=== PATIENT | female | born 1990 | race Caucasian/White ===

== ENCOUNTER → 2017-06-15 14:39 | Outpatient (CLI) | payer OTHER, SELFPAY ==
[2017-05-07 14:00] VITALS: BP 117/64
[2017-06-15 14:11] VITALS: BP 108/71; BMI 25.0
[2017-06-15 15:05] LABS: Absolute Lymphocyte Count 1.46 X10^3/ul (0.83-4.51); Absolute Neutrophil Count 2.8 X10^3/uL (2.0-7.7); Basophil# 0.02 X10^3/uL; Basophil% 0.4 % (0-1); Eosinophil# 0.09 X10^3/uL; Eosinophils% 1.9 % (0-5); Hematocrit 39.1 % (37-47); Hemoglobin 12.1 g/dl (12.0-15.0); Lymphocyte # 1.46 X10^3/ul (4.0); Lymphocyte % 30.4 % (19-41); Mean Corp Hgb Conc 30.9 g/gl (32-36); Mean Corpuscular Hgb 26.9 pg (27.0-32.0); Mean Corpuscular Volume 87.1 fL (81-99); Mean Platelet Vol. 10.2 fl (6.2-12.0); Monocyte# 0.44 X10^3/uL; Monocyte% 9.2 % (0-10); Neutrophil # 2.78 X10^3/uL (2.7-7.7); Neutrophil % 57.9 % (47-70); Platelet Count 285 K/mm3 (150-450); RBC Distribution Width CV 15.3 % (11.6-14.6); RBC Distribution Width SD 49.1 fl (35.1-43.9); Red Blood Count 4.49 M/mm3 (4.2-5.4); White Blood Count 4.8 K/mm3 (4.4-11.0)
[2017-06-15 15:09] LABS: POSITIVE COUNT NO; POSITIVE DIFFERENTIAL NO; POSITIVE MORPHOLOGY NO
== END ==
PROVIDERS: Family Provider Student in an Organized Health Care Education/Training Program; PCP Student in an Organized Health Care Education/Training Program; Visit Provider Obstetrics & Gynecology
DX: R42 Dizziness and giddiness (principal)
CPT/HCPCS: 36415; 85025

== ENCOUNTER → 2017-06-15 18:18 | Outpatient (CLI) | payer OTHER, SELFPAY ==
[2017-05-07 14:00] VITALS: BP 117/64
[2017-06-15 14:11] VITALS: BP 108/71; BMI 25.0
== END ==
PROVIDERS: Family Provider Student in an Organized Health Care Education/Training Program; PCP Student in an Organized Health Care Education/Training Program; Visit Provider Obstetrics & Gynecology
DX: N89.8 Other specified noninflammatory disorders of vagina (principal)
CPT/HCPCS: 87070; 87205

== ENCOUNTER → 2017-08-14 17:39 | Outpatient (CLI) | payer OTHER, SELFPAY | PROVIDERS: Visit Provider Obstetrics & Gynecology | DX: N89.8 Other specified noninflammatory disorders of vagina (principal); R20.8 Other disturbances of skin sensation | CPT/HCPCS: 87070; 87077; 87086; 87088; 87186; 87205 ==

== ENCOUNTER → 2019-06-08 | Outpatient (CLI) | payer OTHER, SELFPAY ==
[2019-06-08 10:33] VITALS: BMI 25.0
[2019-06-15 13:44] LABS: HPV Reflexed? NOT INDICATED
== END | disposition home or self-care (01) ==
PROVIDERS: PCP Student in an Organized Health Care Education/Training Program; Referring Provider Obstetrics & Gynecology; Visit Provider Obstetrics & Gynecology
DX: Z12.4 Encounter for screening for malignant neoplasm of cervix (principal)
CPT/HCPCS: 88175; G0145

== ENCOUNTER → 2019-10-19 08:52 | Outpatient (CLI) | payer OTHER, SELFPAY ==
[2019-06-08 10:33] VITALS: BMI 25.0
--- NOTE | 2019-10-19 09:01 | RAD_ITS ---
PROCEDURE: SMALL BOWEL SERIES DATE OF EXAMINATION: October 19, 2019. INDICATION: Female, 29 years old. 2 month history of abdominal pain and diarrhea. PHYSICIAN: Kam Rice M.D. FLUOROSCOPY TIME (if supplied): (0:10) minutes/seconds TECHNIQUE: Radiographic and fluoroscopic images were taken of the small intestine following the ingestion of barium. COMPARISON: None. FINDINGS: A preliminary supine KUB was obtained. There is an unremarkable bowel gas pattern. Large amount of fecal material is seen in the colon. The lung bases are unremarkable. The osseous structures are normal. The patient orally ingested approximately 12 ounces of thin barium Normal visualized fundus, body, and antrum of the stomach. Normal duodenal bulb, C-loop, and proximal jejunum. Normal visualized mucosal folds of the jejunum and ileum. There are no demonstrated dilatations, strictures, or masses of the small intestine. There is no mass displacement of the loops of small intestine. There is a normal motor pattern with barium reaching the colon within approximately 60 minutes. Spot films under fluoroscopic observation demonstrated a normal terminal ileum and ileocecal valve. RAD/Small Bowel Series Only IMPRESSION: Normal small bowel series. Electronically Signed: Kam Rice, at 11:24 EDT , Service support ,
== END ==
PROVIDERS: PCP Student in an Organized Health Care Education/Training Program; Referring Provider Internal Medicine Gastroenterology; Visit Provider Internal Medicine Gastroenterology
DX: R10.9 Unspecified abdominal pain (principal); R19.7 Diarrhea, unspecified
CPT/HCPCS: 74250

== ENCOUNTER 2020-06-01 12:36 | Outpatient (RCR) | payer OTHER, SELFPAY ==
[2019-06-08 10:33] VITALS: BMI 25.0
== END 2020-06-01 23:59 ==
LOC: IMMUN 12:36
PROVIDERS: PCP Student in an Organized Health Care Education/Training Program; Visit Provider Family Medicine
DX: Z23 Encounter for immunization (principal)
CPT/HCPCS: 0011A; 0012A; 91301

== ENCOUNTER → 2021-02-25 | Outpatient (CLI) | payer OTHER, SELFPAY ==
[2021-02-25 12:05] LABS: Amphetamine Urine VISTA NEGATIVE (<1000 ng/mL); Barbiturate Urine VISTA NEGATIVE (< 200 ng/mL); Benzodiazepine Urine VISTA NEGATIVE (< 200 ng/mL); Cocaine Urine VISTA NEGATIVE (< 300 ng/mL); Ecstacy Urine VISTA NEGATIVE (< 500 ng/mL); Methadone Urine VISTA NEGATIVE (< 300 ng/mL); PCP Urine VISTA NEGATIVE (< 25 ng/mL); THC Urine VISTA NEGATIVE (< 50 ng/mL); Vista UDS pH Range 6
[2021-02-26 21:07] LABS: Chlamydia By Nucleic Acid AMP Negative (Negative)
[2021-02-26 21:34] LABS: Gonococcus By Nucleic Acid AMP Negative (Negative)
== END | disposition home or self-care (01) ==
LOC: LABSPEC 11:41
PROVIDERS: PCP Student in an Organized Health Care Education/Training Program; Referring Provider Obstetrics & Gynecology; Visit Provider Obstetrics & Gynecology
DX: O99.340 Other mental disorders complicating pregnancy, unspecified trimester (principal); F41.9 Anxiety disorder, unspecified; F32.A Depression, unspecified; O26.899 Other specified pregnancy related conditions, unspecified trimester; K21.9 Gastro-esophageal reflux disease without esophagitis; Z3A.00 Weeks of gestation of pregnancy not specified; Z23 Encounter for immunization; Z82.79 Family history of other congenital malformations, deformations and chromosomal abnormalities
CPT/HCPCS: 80307; 87086; 87088; 87491; 87591

== ENCOUNTER 2021-03-04 10:16 | Emergency (ER) | payer OTHER, SELFPAY ==
[2021-03-04 10:17] VITALS: BP 123/98; PULSE 85; RESP 16; TEMP 35.9; O2SAT 100; BMI 20.9
--- NOTE | 2021-03-04 10:31 | EKG12_ITS ---
Test Reason : DIZZINESS/PALPS Blood Pressure : / mmHG Vent. Rate : 079 BPM Atrial Rate : 079 BPM P-R Int : 116 ms QRS Dur : 088 ms QT Int : 388 ms P-R-T Axes : 076 063 058 degrees QTc Int : 444 ms Normal sinus rhythm Normal ECG Confirmed by SHABNAM ALVARADO, DEWEY ([id number]), material expeditor BLANCA CARMONA ([id number]) on 03/06/2021 9:23:53 AM Referred By: NAVEEN Confirmed By:DEWEY HAQUE MD
--- NOTE | 2021-03-04 10:34 | EDS_ITS ---
HPI History of Present Illness Chief Complaint: Dizziness Informant: patient Onset/Context/Timing Onset: Weeks (1) Context: Gradual Onset Timing: Intermittent and Lasts (Approximately 30 minutes) Quality: Spinning Location: Head Worsened by: Certain head movements Relieved by: Remaining still Narrative Narrative: Patient presents with dizziness that has been intermittent over the last week. Patient states it is worse whenever she moves her head certain ways. Patient describes as a spinning sensation. Patient states it gets better whenever she remains still. Patient also admits to some palpitations. Patient states the palpitations are not related to the dizziness. Patient admits to some shortness of breath and chest pain with the palpitations. Patient is approximately 9 weeks . Patient denies any abdominal pain or cramping. Patient denies any vaginal bleeding or discharge. PFSH [facility] Medical History Anxiety Folliculitis GERD (gastroesophageal reflux disease) History of asthma History of PCOS IBS (irritable bowel syndrome) Irregular menses PMDD (premenstrual dysphoric disorder) Home Medications multivitamin no.47-iron fum 27 mg-folate no.1 1 mg-dha 300 mg capsule 1 cap PO DAILY 02/13/21 [History Last Taken Unknown] Allergy/AdvReac Type Severity Reaction Status Date / Time amoxicillin Allergy Mild Hives Verified 03/04/21 10:19 erythromycin Allergy Mild Hives Uncoded 03/04/21 10:19 Family History Grandmother Breast cancer melanoma Grandfather Heart disease Father Diabetes Aunt Cancer ovarian Surgical History H/O hernia repair History of breast lump/mass excision Social History household members: family housing: house number of children: 1 current occupational status: employed Smoking Status: Never smoker second hand exposure: No alcohol intake: never caffeine: Yes what type of physical activity do you participate in: walking frequency: daily seatbelt use: always do you feel safe at home: Yes additional social history: -Jones 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 ROS ED Constitutional Constitutional ED: Denies chills or fever(s) Eyes Eyes: Denies blurry vision or change in vision ENT ENT ED: Denies rhinorrhea or sore throat Cardiovascular Cardiovascular: Reports chest pain and palpitations Respiratory/Chest Respiratory/Chest: Reports dyspnea; Denies cough Gastrointestinal Gastrointestinal: Denies nausea or vomiting Genitourinary Genitourinary ED: Denies dysuria or hematuria Musculoskeletal Musculoskeletal: Reports neck pain; Denies back pain Integumentary Denies abscess or rash Neurologic Neurologic: Reports headache(s); Denies weakness Allergic/Immunologic Allergic/Immunologic ED: Denies mouth swelling or urticaria EXAM Physical Exam Const Vital Signs: 03/04/21 10:17 03/04/21 10:26 03/04/21 11:49 Temperature 96.6 F L Temperature Source Temporal Pulse Rate 85 Pulse Rate [Lying] 78 Pulse Rate [Sitting] 84 Respiratory Rate 16 Respiratory Pattern Normal Blood Pressure 123/98 H Blood Pressure [Lying] 96/57 L Blood Pressure [Sitting] 107/67 Blood Pressure [Standing] 105/69 Blood Pressure Mean 106 Blood Pressure Mean [Lying] 70 Blood Pressure Mean [Sitting] 80 Blood Pressure Mean [Standing] 81 Pulse Ox 100 Oxygen Delivery Method Room Air 03/04/21 12:16 Temperature Temperature Source Pulse Rate 75 Pulse Rate [Lying] Pulse Rate [Sitting] Respiratory Rate 16 Respiratory Pattern Blood Pressure 100/59 L Blood Pressure [Lying] Blood Pressure [Sitting] Blood Pressure [Standing] Blood Pressure Mean 72 Blood Pressure Mean [Lying] Blood Pressure Mean [Sitting] Blood Pressure Mean [Standing] Pulse Ox 100 Oxygen Delivery Method Room Air Positive well nourished and well developed General Appearance ED: well developed HEENT Reports moist mucous membranes Eyes PERRL and EOMs intact bilaterally Eyes Narrative: There is no nystagmus noted. Neck supple and no JVD Resp normal respiratory effort and clear to auscultation bilaterally Cardio regular rate, regular rhythm and no murmurs GI normal to inspection, nondistended, normoactive bowel sounds and non-tender Palpation: soft Extremity normal to inspection General Extremety ED: Negative for edema or tenderness General Extremity: Negative for edema Neuro oriented x3, CN's II-XII intact bilaterally and no sensory deficits noted Neuro Narrative: Marble-Hallpike maneuver was negative. Sensorium / Orientation: alert Motor Exam: strength 5/5 throughout Psych mental status grossly normal Skin no rashes or lesions noted MDM MDM MDM Narrative Medical decision making narrative: Patient did not have any vertigo type symptoms here in the emergency department. Patient had no further palpitations here in the emergency department. EKG was obtained. On my interpretation, shows a normal sinus rhythm with a rate of 79. There are no acute ST or T wave changes. HI interval, QRS interval, and QTc intervals were normal. [place] was normal. CBC and comprehensive metabolic profile were within normal limits. Urinalysis does not show any evidence of urinary tract infection. Orthostatic vital signs were obtained were within normal limits. Patient was advised of her findings. Patient was given a prescription for meclizine to take as needed. Patient was instructed to follow-up with her primary care physician and [employer] [facility] [employer] in 3 to 5 days. Patient understood and was agreeable with the plan. All questions were answered. Lab Data Attestation: I reviewed the patient's lab results. Labs: Laboratory Results - last 24 hr 03/04/21 03/04/21 03/04/21 10:34 10:34 11:35 WBC 5.4 RBC 4.10 L Hgb 13.0 Hct 38.2 MCV 93.2 MCH 31.7 MCHC 34.0 RDW Std Deviation 42.5 RDW Coeff of Maxx 12.3 Plt Count 251 MPV 10.4 Immature Gran % (Auto) 0.400 Neut % (Auto) 71.1 H Lymph % (Auto) 20.0 [place] % (Auto) 7.4 Eos % (Auto) 0.7 Baso % (Auto) 0.4 Absolute Neuts (auto) 3.9 Absolute Lymphs (auto) 1.08 Nucleated RBC % 0 Sodium 137 Potassium 3.5 Chloride 105 Carbon Dioxide 26.0 Anion Gap 6 BUN 12 Creatinine 0.63 Estim Creat Clear Calc 121.55 Est GFR (MDRD) Af Amer 141 Est GFR (MDRD) Non-Af 117 BUN/Creatinine Ratio 19.0 Glucose 54 L Calcium 8.6 Total Bilirubin 0.50 AST 7 L ALT 12 L Alkaline Phosphatase 34 L Total Protein 7.1 Albumin 3.7 Globulin 3.4 Albumin/Globulin Ratio 1.1 Urine Color Yellow Urine Clarity Sl. Cloudy Urine pH 6.5 Ur Specific [place] 1.020 Urine Protein 15 H Urine Glucose (UA) Normal Urine Ketones 15 H Urine Occult Blood Negative Urine Nitrite Negative Urine Bilirubin Negative Urine Urobilinogen Normal Ur Leukocyte Esterase Negative Urine RBC 0 SEEN Urine WBC 0 SEEN Ur Squamous Epith Cells 0-5 SEEN Urine Bacteria 1+ Urine Mucus 2+ EKG Initial EKG: Attestation: I personally reviewed and interpreted this EKG as follows: Interpretation: Sinus Rhythm (79) and No Acute Injury Pattern Discharge Plan Triage Chief Complaint: Dizziness ED Provider: Santo Jalloh Dx/Rx/DC Orders Clinical Impression: Vertigo, First trimester Instructions: ED Vertigo, Unspecified Prescriptions: No Action PNV-DHA 27 mg iron-1 mg -300 mg capsule 1 cap PO DAILY RF: 0 Primary Care Provider: Ad Call Referrals: Ad Call DO [Primary Care Provider] - 3-5 Days Disposition Disposition: Home, Self Care
[2021-03-04] MEDS: 0.9% Normal Saline 1,000 ML 1000 ML IV (10:37)
[2021-03-04 10:50] LABS: Absolute Lymphocyte Count 1.08 X10^3/uL (0.83-4.51); Absolute Neutrophil Count 3.9 X10^3/uL (2.0-7.7); Basophil# 0.02 X10^3/uL; Basophil% 0.4 % (0-1); Eosinophil# 0.04 X10^3/uL; Eosinophils% 0.7 % (0-5); Hematocrit 38.2 % (37-47); Lymphocyte # 1.08 X10^3/ul (0.83-4.51); Mean Corpuscular Hgb 31.7 pg (27.0-32.0); Mean Corpuscular Volume 93.2 fL (81-99); Mean Platelet Vol. 10.4 fl (6.2-12.0); Monocyte% 7.4 % (0-10); NRBC Flagged by Analyzer 0 % (0-5); Neutrophil # 3.85 X10^3/uL (2.7-7.7); Neutrophil % 71.1 % (47-70); Platelet Count 251 K/mm3 (150-450); RBC Distribution Width CV 12.3 % (11.6-14.6); RBC Distribution Width SD 42.5 fl (35.1-43.9); White Blood Count 5.4 K/mm3 (4.4-11.0)
[2021-03-04 11:07] LABS: ALB/GLOB Ratio 1.1 RATIO (0.9-2.4); AST(SGOT) 7 U/L (15-37); Alanine Aminotransfer ALT/SGPT 12 U/L (13-56); Albumin, Serum 3.7 g/dL (3.2-5.0); Alkaline Phosphatase 34 U/L (45-117); Anion Gap 6 (5-15); BUN 12 mg/dL (7-18); Calcium,Total 8.6 mg/dL (8.5-10.1); Chloride 105 mmol/L (98-107); Creatinine, Serum 0.63 mg/dL (0.55-1.02); EST Glomerular Filtration Rate 117 mL/min (>60); Est Glom Filt Rate - Afr Amer 141 mL/min (>60); Estimated Creatinine Clearance 121.55 ml/min; Globulin 3.4 g/dL (2.2-4.2); Glucose 54 mg/dL (74-106); Potassium 3.5 mmol/L (3.5-5.1); Protein, Total 7.1 g/dL (6.4-8.2); Sodium Level 137 mmol/L (136-145)
[2021-03-04 11:41] LABS: Red Blood Cells-Urine 0 SEEN /hpf (0-5); White Blood Cells 0 SEEN /hpf (0-5)
[2021-03-04 11:44] LABS: Color, Urine Yellow (Yellow); Glucose, Dipstick Normal (Normal); Ketone-Dipstick 15 mg/dl (Negative); Leukocyte Esterase-Dipstick Negative /ul (Negative); Nitrite-Dipstick Negative (Negative); Occult Blood-Urine Negative /ul (Negative); Protein-Dipstick 15 mg/dl (Negative); Urine Bilirubin Dipstick Negative (Negative); Urine Clarity Sl. Cloudy (Clear); Urine Urobilinogen Normal (Normal); Urine pH 6.5 (5.0 - 8.0)
[2021-03-04 11:49] VITALS: BP 105/69; BP 107/67; BP 96/57; PULSE 78; PULSE 84
[2021-03-04 11:50] LABS: Bacteria 1+ /hpf (None Seen); Mucous, Urine 2+ /hpf (<or=2+); Squamous Epithelial Cells - UA 0-5 SEEN /hpf (5-10)
[2021-03-04 12:16] VITALS: BP 100/59; PULSE 75; RESP 16; O2SAT 100
[2021-03-04 13:25] VITALS: BP 97/65; PULSE 71; RESP 18; O2SAT 98
== END 2021-03-04 13:25 | disposition home or self-care (01) ==
PROVIDERS: Emergency Provider Emergency Medicine; PCP Student in an Organized Health Care Education/Training Program
DX: O26.891 Other specified pregnancy related conditions, first trimester (principal); R42 Dizziness and giddiness; O99.611 Diseases of the digestive system complicating pregnancy, first trimester; K21.9 Gastro-esophageal reflux disease without esophagitis; O99.511 Diseases of the respiratory system complicating pregnancy, first trimester; J45.909 Unspecified asthma, uncomplicated; Z3A.09 9 weeks gestation of pregnancy
CPT/HCPCS: 80053; 81001; 85025; 93005; 96360; 99284; A4216

== ENCOUNTER → 2021-03-07 09:44 | Outpatient (CLI) | payer OTHER, SELFPAY ==
[2021-03-07 10:24] LABS: Absolute Neutrophil Count 4.7 X10^3/uL (2.0-7.7); Basophil# 0.02 X10^3/uL; Basophil% 0.3 % (0-1); Eosinophil# 0.04 X10^3/uL; Eosinophils% 0.7 % (0-5); Lymphocyte % 14.6 % (19-41); Mean Corp Hgb Conc 34.2 g/dL (32-36); Mean Corpuscular Hgb 31.6 pg (27.0-32.0); Mean Corpuscular Volume 92.5 fL (81-99); Mean Platelet Vol. 10.4 fl (6.2-12.0); Monocyte# 0.42 X10^3/uL; Monocyte% 6.8 % (0-10); NRBC Flagged by Analyzer 0 % (0-5); Neutrophil # 4.74 X10^3/uL (2.7-7.7); Neutrophil % 77.1 % (47-70); Platelet Count 246 K/mm3 (150-450); RBC Distribution Width CV 12.4 % (11.6-14.6); RBC Distribution Width SD 42.3 fl (35.1-43.9); Red Blood Count 4.11 M/mm3 (4.2-5.4); White Blood Count 6.2 K/mm3 (4.4-11.0)
[2021-03-07 11:36] LABS: HIV - WCH Non-Reactive (Nonreactive); Hepatitis B Surface Antigen Non-Reactive (Nonreactive); Hepatitis C Antibody Non-Reactive (Nonreactive); Rubella IgG Reactive (Nonreactive); Syphilis Antibodies Non-reactive
== END ==
PROVIDERS: PCP Student in an Organized Health Care Education/Training Program; Referring Provider Obstetrics & Gynecology; Visit Provider Obstetrics & Gynecology
DX: O99.619 Diseases of the digestive system complicating pregnancy, unspecified trimester (principal); K21.9 Gastro-esophageal reflux disease without esophagitis; O99.340 Other mental disorders complicating pregnancy, unspecified trimester; F41.9 Anxiety disorder, unspecified; F32.A Depression, unspecified; Z3A.00 Weeks of gestation of pregnancy not specified; Z23 Encounter for immunization; Z82.79 Family history of other congenital malformations, deformations and chromosomal abnormalities
CPT/HCPCS: 36415; 85025; 86703; 86762; 86780; 86803; 86850; 86900; 86901; 87340

== ENCOUNTER 2021-06-04 10:33 | Outpatient (CLI) | payer OTHER, SELFPAY ==
[2021-06-04 10:48] LABS: Absolute Lymphocyte Count 1.12 X10^3/uL (0.83-4.51); Absolute Neutrophil Count 5.8 X10^3/uL (2.0-7.7); Basophil# 0.03 X10^3/uL; Basophil% 0.4 % (0-1); Eosinophil# 0.09 X10^3/uL; Eosinophils% 1.2 % (0-5); Hematocrit 36.2 % (37-47); Hemoglobin 11.9 g/dL (12.0-15.0); Lymphocyte # 1.12 X10^3/ul (0.83-4.51); Mean Corp Hgb Conc 32.9 g/dL (32-36); Mean Corpuscular Hgb 31.2 pg (27.0-32.0); Mean Corpuscular Volume 94.8 fL (81-99); Mean Platelet Vol. 9.8 fl (6.2-12.0); Monocyte# 0.38 X10^3/uL; Monocyte% 5.1 % (0-10); NRBC Flagged by Analyzer 0 % (0-5); Neutrophil # 5.79 X10^3/uL (2.7-7.7); Neutrophil % 77.6 % (47-70); Platelet Count 290 K/mm3 (150-450); RBC Distribution Width CV 12.6 % (11.6-14.6); RBC Distribution Width SD 43.8 fl (35.1-43.9); Red Blood Count 3.82 M/mm3 (4.2-5.4); White Blood Count 7.5 K/mm3 (4.4-11.0)
[2021-06-04 11:15] LABS: ALB/GLOB Ratio 0.8 RATIO (0.9-2.4); AST(SGOT) 13 U/L (15-37); Alanine Aminotransfer ALT/SGPT 14 U/L (13-56); Alkaline Phosphatase 55 U/L (45-117); Anion Gap 6 (5-15); BUN 12 mg/dL (7-18); BUN/Creat Ratio 24.8 RATIO (10-20); Calcium,Total 8.1 mg/dL (8.5-10.1); Chloride 106 mmol/L (98-107); Creatinine, Serum 0.48 mg/dL (0.55-1.02); EST Glomerular Filtration Rate 159 mL/min (>60); Est Glom Filt Rate - Afr Amer 192 mL/min (>60); Glucose 71 mg/dL (74-106); Potassium 3.6 mmol/L (3.5-5.1); Sodium Level 138 mmol/L (136-145)
== END 2021-06-04 23:59 | disposition short-term general hospital (02) ==
PROVIDERS: PCP Student in an Organized Health Care Education/Training Program; Referring Provider Obstetrics & Gynecology; Visit Provider Obstetrics & Gynecology
DX: O99.719 Diseases of the skin and subcutaneous tissue complicating pregnancy, unspecified trimester (principal); L29.9 Pruritus, unspecified
CPT/HCPCS: 36415; 80053; 85025

== ENCOUNTER 2021-07-16 10:29 | Outpatient (CLI) | payer OTHER, SELFPAY ==
[2021-07-16 10:50] LABS: Absolute Lymphocyte Count 1.27 X10^3/uL (0.83-4.51); Absolute Neutrophil Count 6.3 X10^3/uL (2.0-7.7); Basophil# 0.02 X10^3/uL; Basophil% 0.2 % (0-1); Eosinophil# 0.09 X10^3/uL; Eosinophils% 1.1 % (0-5); Hematocrit 33.4 % (37-47); Hemoglobin 11.2 g/dL (12.0-15.0); Lymphocyte # 1.27 X10^3/ul (0.83-4.51); Lymphocyte % 15.2 % (19-41); Mean Corp Hgb Conc 33.5 g/dL (32-36); Mean Corpuscular Volume 92.5 fL (81-99); Mean Platelet Vol. 9.5 fl (6.2-12.0); Monocyte# 0.57 X10^3/uL; Monocyte% 6.8 % (0-10); NRBC Flagged by Analyzer 0 % (0-5); Neutrophil # 6.29 X10^3/uL (2.7-7.7); Neutrophil % 75.5 % (47-70); Platelet Count 221 K/mm3 (150-450); RBC Distribution Width CV 12.2 % (11.6-14.6); RBC Distribution Width SD 41.1 fl (35.1-43.9); Red Blood Count 3.61 M/mm3 (4.2-5.4); White Blood Count 8.3 K/mm3 (4.4-11.0)
[2021-07-16 11:01] LABS: Glucose Challenge Gest 1H 50g 89 mg/dL (70-140)
== END 2021-07-16 23:59 | disposition home or self-care (01) ==
LOC: PAVLAB 10:30
PROVIDERS: PCP Student in an Organized Health Care Education/Training Program; Referring Provider Obstetrics & Gynecology; Visit Provider Obstetrics & Gynecology
DX: Z34.82 Encounter for supervision of other normal pregnancy, second trimester (principal); Z3A.26 26 weeks gestation of pregnancy
CPT/HCPCS: 36415; 82950; 85025

== ENCOUNTER → 2021-09-06 | Outpatient (CLI) | payer OTHER, SELFPAY | END | disposition home or self-care (01) | LOC: LABSPEC 16:49 | PROVIDERS: PCP Student in an Organized Health Care Education/Training Program; Visit Provider Obstetrics & Gynecology | DX: Z34.90 Encounter for supervision of normal pregnancy, unspecified, unspecified trimester (principal); Z3A.38 38 weeks gestation of pregnancy | CPT/HCPCS: 87081 ==

== ENCOUNTER → 2021-10-04 | Outpatient (CLI) | payer OTHER, SELFPAY ==
--- NOTE | 2021-10-04 16:28 | US_ITS ---
EXAM: US , LIMITED CLINICAL INDICATION: post dates TECHNIQUE: Real-time limited ultrasound of the maternal uterus with image documentation. This report was created using [employer] report generation technology. COMPARISON: None. FINDINGS: FETUS: Fairly symmetric measurements. Overall estimated gestation age 38 weeks 1 day sonographically. DRE: Sonographic DRE October 17, 2021. EFW: Estimated weight 3586 g, percentile not provided due to postdates. BPD: Biparietal diameter corresponds to 38 weeks gestation age. HC: Head circumference corresponds to 38 weeks 2 days gestation age. AC: Abdominal circumference corresponds to 39 weeks 1 day gestation age. FL: Femur length corresponds to 37 weeks 4 days gestation age. POSITION: Cephalic presentation. The cervix is not visualized. HEART RATE: heart rate 136-167 bpm. PLACENTA: Fundal placenta, grade 2. AMNIOTIC FLUID: Amniotic fluid volume appears adequate, four-quadrant CHUYITA 21.1 cm, the largest pocket 6.2 cm. ADNEXA: Nonvisualized maternal ovaries. OTHER FINDINGS: US/OB Limited With Biometrics IMPRESSION: Single live IUP. Cephalic presentation. Measurements correspond to 38 weeks 1 day sonographic age. Electronically Signed: Azeb Banuelos MD at 22:40 EDT ,
== END | disposition home or self-care (01) ==
LOC: US 16:26
PROVIDERS: PCP Student in an Organized Health Care Education/Training Program; Referring Provider Obstetrics & Gynecology; Visit Provider Obstetrics & Gynecology
DX: O48.0 Post-term pregnancy (principal)
CPT/HCPCS: 76816

== ENCOUNTER 2021-10-09 18:35 | Inpatient (IN) | payer OTHER, SELFPAY ==
[2021-10-09] VITALS (29 sets, daily range): BP systolic 87–127; BP diastolic 52–71; PULSE 75–102; TEMP 36.7–36.8; O2SAT 85–100; BMI 27.7
[2021-10-09 19:18] LABS: Absolute Lymphocyte Count 1.91 X10^3/uL (0.83-4.51); Absolute Neutrophil Count 8.8 X10^3/uL (2.0-7.7); Basophil# 0.03 X10^3/uL; Basophil% 0.3 % (0-1); Eosinophil# 0.06 X10^3/uL; Eosinophils% 0.5 % (0-5); Hematocrit 38.2 % (37-47); Hemoglobin 11.8 g/dL (12.0-15.0); Lymphocyte # 1.91 X10^3/ul (0.83-4.51); Lymphocyte % 16.6 % (19-41); Mean Corp Hgb Conc 30.9 g/dL (32-36); Mean Corpuscular Hgb 26.8 pg (27.0-32.0); Mean Corpuscular Volume 86.6 fL (81-99); Mean Platelet Vol. 10.8 fl (6.2-12.0); Monocyte# 0.62 X10^3/uL; Monocyte% 5.4 % (0-10); NRBC Flagged by Analyzer 0 % (0-5); Neutrophil # 8.82 X10^3/uL (2.7-7.7); Neutrophil % 76.7 % (47-70); Platelet Count 274 K/mm3 (150-450); RBC Distribution Width CV 14.3 % (11.6-14.6); RBC Distribution Width SD 44.6 fl (35.1-43.9); Red Blood Count 4.41 M/mm3 (4.2-5.4); White Blood Count 11.5 K/mm3 (4.4-11.0)
[2021-10-09] MEDS: Lactated Ringers 1,000 ML 200 ML IV (19:21)
[2021-10-09] MEDS: Lactated Ringers 500 ML 999 ML IV (19:21)
--- NOTE | 2021-10-09 19:38 | HP.PCM.OB_ITS ---
HPI - General General Date of Admission: 10/09/21 HPI Narrative DANYELL COCHRAN, is a 31 y/o @ 40 weeks 6 days who presents to L&D with painful contractions and found to be 5 cm dilated. After one hour her cervix changed to 6 cm and she requested an epidural. Maternal Data Information DRE Calculator Estimated Delivery Date Method Current WG Current Estimate 10/03/21 Ultrasound #1 40w 6d Other Estimates 09/25/21 LMP (Certain) 42w 0d PFSH PFSH Medical History Anxiety Folliculitis GERD (gastroesophageal reflux disease) History of asthma History of PCOS IBS (irritable bowel syndrome) Irregular menses PMDD (premenstrual dysphoric disorder) Home Medications multivitamin no.47-iron fum 27 mg-folate no.1 1 mg-dha 300 mg capsule 1 cap PO DAILY 02/13/21 [History Last Taken 10/07/21] Allergy/AdvReac Type Severity Reaction Status Date / Time amoxicillin Allergy Mild Hives Verified 10/09/21 13:34 erythromycin Allergy Mild Hives Uncoded 10/09/21 13:34 Family History Grandmother Breast cancer melanoma Grandfather Heart disease Father Diabetes Aunt Cancer ovarian Surgical History H/O hernia repair History of breast lump/mass excision Social History household members: family housing: house number of children: 1 current occupational status: employed Smoking Status: Never smoker second hand exposure: No alcohol intake: never caffeine: Yes what type of physical activity do you participate in: walking frequency: daily seatbelt use: always do you feel safe at home: Yes additional social history: -Jones 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 Date Name GA/Weeks Outcome Route Bth Weight Gen Labor Lgth Anesthesia Del Locatn Provider FOB 05/05/17 Artur 40 live - full term 7lbs 8oz Male 15 hours epidural [facility] Delivery Date: 05/05/17 2nd degree laceration BlayneDay Visit Details Expected Delivery Route/Plan Labor Preferences- labor support person jones labor intervention preferences: none pain management options preferred: epidural cut cord/dad catch: yes : yes PP control planned: [] discussed possible routes of delivery and associated risks: [] special requests: [] Plans Covid status: given moderna Flu vaccine: given Tdap vaccine: given Rhogam: na LARC form signed: delcined movement and labor precautions reviewed. Problem list reviewed and updated with the most current plan of care details and appropriate orders placed. Relevant counseling for the gestational age provided. Continue routine care and follow up unless otherwise noted in visit notes/problem list details OB Flowsheet Initial Weight: 132 lb Date -?-?-?-?-?-?-?-?-?-?-?-?- EGA Weight BP Urine Prot -?-?-?-?-?-?-?-?-?-?-?-?- Glucose FHR FuHt Pres Dilation -?-?-?-?-?-?-?-?-?-?-?-?- Effaced St Visit Note 02/25/21 -?-?-?-?-?-?-?-?-?-?-?-?- 8w 4d 132 lb (+0 oz) 102/70 -?-?-?-?-?-?-?-?-?-?-?-?- 170 -?-?-?-?-?-?-?-?-?-?-?-?- SM- CRL 1.8cm NO T cons with LMP 03/25/21 -?-?-?-?-?-?-?-?-?-?-?-?- 12w 4d 135 lb (+3 lb) 110/72 Negative -?-?-?-?-?-?-?-?-?-?-?-?- Negative 160 -?-?-?-?-?-?-?-?-?-?-?-?- SM- no vb lof cr amping 04/22/21 -?-?-?-?-?-?-?-?-?-?-?-?- 16w 4d 139 lb (+7 lb) 108/54 -?-?-?-?-?-?-?-?-?-?-?-?- 160 -?-?-?-?-?-?-?-?-?-?-?-?- SM- no vb crampi ng 05/20/21 -?-?-?-?-?-?-?-?-?-?-?-?- 20w 4d 146 lb (+14 lb) 100/58 Negative -?-?-?-?-?-?-?-?-?-?-?-?- Negative 155 -?-?-?-?-?-?-?-?-?-?-?-?- JV- no lof, vagi nal bleeding or dec fm. +gerd, pepcid causing diarrhea. will eliezer carafate 06/04/21 -?-?-?-?-?-?-?-?-?-?-?-?- 22w 5d 148 lb (+16 lb) 120/82 -?-?-?-?-?-?-?-?-?-?-?-?- 145 -?-?-?-?-?-?-?-?-?-?-?-?- SM- no vb lof cr amping co itching and intermittent rash and hives. recommend antihistmatines and steroid cream, start with medrol dose pack. has history of eczema. check labs to rule ou cholestasis. 07/01/21 -?-?-?-?-?-?-?-?-?-?-?-?- 26w 4d 155 lb (+23 lb) 122/70 -?-?-?-?-?-?-?-?-?-?-?-?- 145 26 -?-?-?-?-?-?-?-?-?-?-?-?- Sm- no vb lof go od fm no regular ctx 07/16/21 -?-?-?-?-?-?-?-?-?-?-?-?- 28w 5d 159 lb 4 oz (+27 lb 4 oz) 116/62 Negative -?-?-?-?-?-?-?-?-?-?-?-?- Negative 140 29 -?-?-?-?-?-?-?-?-?-?-?-?- SM- no vb lof go od fm no regular ctx 08/02/21 -?-?-?-?-?-?-?-?-?-?-?-?- 31w 1d 162 lb 8 oz (+30 lb 8 oz) 106/60 -?-?-?-?-?-?-?-?-?-?-?-?- 145 32 -?-?-?-?-?-?-?-?-?-?-?-?- SM- no vb lof go od fm no regular ctx 08/16/21 -?-?-?-?-?-?-?-?-?-?-?-?- 33w 1d 166 lb (+34 lb) 104/62 Negative -?-?-?-?-?-?-?-?-?-?-?-?- Negative 140 33 -?-?-?-?-?-?-?-?-?-?-?-?- SM- no vb lof go od fm no regular ctx 08/29/21 -?-?-?-?-?-?-?-?-?-?-?-?- 35w 0d 169 lb (+37 lb) 106/60 Negative -?-?-?-?-?-?-?-?-?-?-?-?- Negative 145 35 -?-?-?-?-?-?-?-?-?-?-?-?- SM- no vb lof go od fm no regular ctx 09/06/21 -?-?-?-?-?-?-?-?-?-?-?-?- 36w 1d 170 lb (+38 lb) 100/72 Negative -?-?-?-?-?-?-?-?-?-?-?-?- Negative 140 36 -?-?-?-?-?-?-?-?-?-?-?-?- SM- no vb lof go od fm no reuglar ctx gbs done 09/13/21 -?-?-?-?-?-?-?-?-?-?-?-?- 37w 1d 170 lb 2 oz (+38 lb 2 oz) 124/60 -?-?-?-?-?-?-?-?-?-?-?-?- 137 36 -?-?-?-?-?-?-?-?-?-?-?-?- JV- no lof, vagi nal bleeding, or dec fm. GBS is neg 09/20/21 -?-?-?-?-?-?-?-?-?-?-?-?- 38w 1d 170 lb 2 oz (+38 lb 2 oz) 102/70 Negative -?-?-?-?-?-?-?-?-?-?-?-?- Negative 135 37 1 -?-?-?-?-?-?-?-?-?-?-?-?- 50 -2 JV- no lof ,vaginal bleeding, or dec fm 09/27/21 -?-?-?-?-?-?-?-?-?-?-?-?- 39w 1d 172 lb (+40 lb) 130/62 -?-?-?-?-?-?-?-?-?-?-?-?- 150 38 Cephalic 2 -?-?-?-?-?-?-?-?--?-?-?-?- 60 -2 SM- no vb lof good fm no regular ctx 10/04/21 -?-?-?-?-?-?-?-?-?-?-?-?- 40w 1d 171 lb (+39 lb) 108/82 -?--?-?-?-?-?-?-?-?-?-?-?- 140 37 Cephalic 2 -?-?-?-?-?-?-?-?-?-?-?-?- 60 -1 SM- no vb lof good fm n oregular ctx check growt hus today discussed IOL 41 weeks unless lof fluid or growth 10/09/21 -?-?-?-?-?-?-?-?-?-?-?-?- 40w 6d 172 lb 2 oz (+40 lb 2 oz) 116/72 -?-?-?-?-?-?-?-?-?-?-?-?- 140 4 -?-?-?-?-?-?-?-?-?-?-?-?- 70 -1 MH-NST and reactive. CTX Q4 min on strip. States mild and started about 3 hr ago. No VB,LOF. Will go home(lives 5 min away) and return to when more active labor. 10/09/21 -?-?-?-?-?-?-?-?-?-?-?-?- 40w 6d 172 lb (+40 lb) 121/71 115/71 -?-?-?-?-?-?-?-?-?-?-?-?- -?-?-?-?-?-?-?-?-?-?-?-?- ROS Constitutional Constitutional: Denies change in weight, fatigue, fever(s), headache(s), poor appetite or weakness Eyes Eyes: Denies blurry vision, change in vision, seeing flashes or spots in vision ENT HEENT: Denies dizziness, headache(s), loss taste/smell or sore throat Cardiovascular Cardiovascular: Denies chest pain, dizziness, dyspnea, irregular heart rhythm, leg edema, palpitations, rapid heart rate or vomiting Respiratory/Chest Respiratory/Chest: Denies chest tightness, cough, dyspnea or breast pain Gastrointestinal Gastrointestinal: Denies abdominal pain, anorexia, constipation, cramping, diarrhea, hemorrhoids, vomiting or weight changes Genitourinary Genitourinary: Denies dysuria, flank pain, genital lesions, genital pain, urinary frequency or urinary urgency Musculoskeletal Musculoskeletal: Denies back pain, difficulty walking, joint pain, limited range of motion, muscle cramps or numbness Integumentary Integumentary: Denies lesions or unusual bruising Neurologic Neurologic: Denies abnormal movements, abnormal speech, dizziness, numbness, seizure-like activity or syncope Psychiatric Psychiatric: Denies anxiety, behavioral changes, change in appetite, change in libido, cognitive impairment, confusion, depression, difficulty concentrating, hallucinations or suicidal thoughts Endocrine Endocrinology: Denies excessive sweating, polydipsia or polyuria Hematologic/Lymphatic Hematologic/Lymphatic: Denies easy bleeding, easy bruising or lymphadenopathy Allergic/Immunologic Allergic/Immunologic: Denies itchy eyes, lip swelling, seasonal rhinorrhea, rhinitis, throat swelling, tongue swelling, eczemia, wheezing or asthma Vital Signs Vital Signs Vital Signs: 10/09/21 17:01 10/09/21 17:02 10/09/21 19:34 Temperature 98.0 F Temperature Source Temporal Pulse Rate 82 95 Blood Pressure 121/71 H 115/71 BP Systolic 121 115 BP Diastolic 71 71 Pulse Ox 100 Weight Weight: 172 lb Body Mass Index (BMI) 27.7 Physical Exam Const alert, oriented x3, no apparent distress and healthy appearing General Appearance: cooperative; Negative for anxious HEENT normocephalic Face and Sinus: normal facial exam Eyes EOMs intact bilaterally and no scleral icterus General Eye: normal appearance of both eyes Neck full ROM and supple Lymph Lymphatic: no lymphadenopathy noted Chest Chest: abnormal inspection of the chest Resp normal respiratory effort Effort and Inspection: able to speak in complete sentences Cardio regular rate GI soft to palpation and non-tender Inspection: gravid Palpation: soft; Negative for tender external exam normal Amniotic Fluid: other see HPI Back/Spine no CVA tenderness Extremity normal to inspection, full ROM and no clubbing, cyanosis or edema General Extremity: Negative for calf tenderness or edema Skin Lesions: no lesions Rashes: no rashes Psych mental status grossly normal Labs Labs Labs: Blood Type B POSITIVE Antibody Screen NEGATIVE Hct 38.2 % (37-47) Hgb 11.8 g/dL (12.0-15.0) L Pap Smear Negative Obstetrics US Syphilis Total Ab Non-reactive Rubella IgG Antibody Reactive (Nonreactive) Hep Bs Antigen Non-Reactive (Nonreactive) Chlamydia DNA ([place]) Negative (Negative) Neisseria gonorrhoeae DNA ([place]) Negative (Negative) HIV 1&2 Antibody Non-Reactive (Nonreactive) Glucose 1 Hr 50 gm 89 mg/dL (70-140) Group B Strep DNA POSITIVE (Negative) H Rhogam given: No Miscellaneous Test Assessment & Plan (1) 41 weeks gestation of : (2) Eczema: COMMENT: antihistamines (3) Family history of other congenital malformations, deformations and chromosomal abnormalities: COMMENT: Sister was born with a hole in her heart- no surgical intervention required. Per MFM echo not indicated (4) GERD (gastroesophageal reflux disease): COMMENT: OTC pepcid (5) Anxiety and depression: COMMENT: sees a counselor (6) Supervision of other normal : COMMENT: PRR DRE: 10/03/21 boy Diaz PC: Artur Spouse: Jones (7) : QUALIFIERS: Weeks of gestation: 40 weeks Qualified Code(s): Z3A.40 - 40 weeks gestation of COMMENT: GBS negative, declined ntd, genetic and carrier screen. Anatomy US normal PLAN: Patient presents IAL, plan expectant management for , pitocin/AROM PRN if needed. Pain management: plans epidural. GBS negative . Management of any complications: none I have reviewed the [facility] and made any clinically relevant updates.
[2021-10-09] MEDS: fentaNYL-bupivacaine (epidural) 100 ML BAG EPIDURAL (20:18)
[2021-10-09] MEDS: Oxytocin 30 units/NS 500 ml 30 UNITS/500 ML IV.SOLN 334 UNITS IV (20:47)
--- NOTE | 2021-10-09 21:00 | OP.PCM_ITS ---
Assessment & Plan (1) 41 weeks gestation of : (2) Eczema: COMMENT: antihistamines (3) Family history of other congenital malformations, deformations and chromosomal abnormalities: COMMENT: Sister was born with a hole in her heart- no surgical intervention required. Per MFM echo not indicated (4) GERD (gastroesophageal reflux disease): COMMENT: OTC pepcid (5) Anxiety and depression: COMMENT: sees a counselor (6) Supervision of other normal : COMMENT: PRR DRE: 10/03/21 boy Diaz PC: Artur Spouse: Jones (7) : QUALIFIERS: Weeks of gestation: 40 weeks Qualified Code(s): Z3A.40 - 40 weeks gestation of COMMENT: GBS negative, declined ntd, genetic and carrier screen. Anatomy US normal Maternal Data Information DRE Calculator Estimated Delivery Date Method Current WG Current Estimate 10/03/21 Ultrasound #1 40w 6d Other Estimates 09/25/21 LMP (Certain) 42w 0d Vaginal Delivery Maternal Presentation Maternal Presentation: Active Labor Type of Induction: Amniotomy Operative Information Date of Procedure: 10/09/21 Pre-Operative Diagnosis: @ 40 weeks 6 days, active labor Post-Operative Diagnosis: @ 40 weeks 6 days, active labor Surgery / Procedure Performed: Spontaneous Vaginal Delivery Type of Anesthesia: Epidural Anesthesiologist: Wei Bunch Drain: Bui to straight drain Estimated Blood Loss: 100cc Findings Description of Procedure: Patient began pushing and delivered the head in the CHASIDY presentation. The head was delivered atraumatically. The anterior and posterior shoulders delivered without complication followed by the rest of the infant and the infant was placed on the maternal abdomen. Delayed cord clamping was employed for approximately 60 seconds. Cord was clamped and cut and gentle traction was applied to the cord and the placenta delivered spontaneously immediately following it was noted to be intact with three-vessel cord. The perineum and vagina were inspected and noted to have a 1st degree perineal laceration that was repaired with a 3-0 vicryl rapide suture. EBL was 100 cc. Patient and infant tolerated delivery well. Presentation: Vertex Amniotic Membrane Rupture Type: Spontaneous Amniotic Fluid Description: Clear Placental Delivery Description: Spontaneous Placenta Disposition: [facility] Cord Vessel Description: 3 Vessels Cord Entanglement: None Infant A Gender: Male (1 minute): 9 (5 minute): 9 Delayed Cord Clamping: Yes Post Vaginal Delivery Medications Given After Delivery: IV Pitocin Episiotomy Description: None Laceration: 1st degree Complication Complications: None Multi Select Codes Urinary/Genital Urinary/Genital CPT Codes: 04591 Vaginal Delivery [facility]
--- NOTE | 2021-10-09 21:03 | PCM.DC ---
Discharge Instructions Diet Discharge Diet: No restrictions Activity Discharge Activity: Return to Normal Activity, May Not Drive (while taking narcotic pain medications.) and May Shower May resume sexual activity in: 4-6 weeks Dressing / Incision Call your doctor if your incision/area has: Continuous Slow Oozing, Sudden Increased Bleeding, Increased Pain/ Swelling, Increased Redness and Foul Smelling Discharge Follow Up Care Please Follow Up With: Amy Moran DO When: Call [phone] to make an appointment with your doctor in 6 weeks. If you had elevated blood pressure or 4th degree laceration, you will need to be seen in 2 weeks. Test Results: Test results from this visit will be discussed in further detail at your follow-up appointment, if applicable. Discharge Plan Admission Admit Date/Time: 10/09/21 18:35 Primary Reason for Your Visit: vaginal delivery Attending Provider: Amy Moran Primary Care Provider: Ad Call Discharge Orders/Prescriptions Prescriptions: New ibuprofen 800 mg tablet 800 mg PO Q8H PRN (Reason: pain) 7 Days Qty: 30 RF: 0 Continued PNV-DHA 27 mg iron-1 mg -300 mg capsule 1 cap PO DAILY RF: 0 Referrals / Follow Up: Ad Call DO [Primary Care Provider] - Disposition Disposition (needs filled in before D/C Order can be placed): Home, Self Care
[2021-10-10] VITALS (9 sets, daily range): BP systolic 99–114; BP diastolic 56–67; PULSE 79–89; RESP 16–18; TEMP 36.6–37; O2SAT 97–98
[2021-10-10] MEDS: Acetaminophen 500 MG Tablet 1000 MG PO (02:04)
[2021-10-10] MEDS: Ibuprofen 600 MG Tablet PO ×2 (06:42→17:25)
--- NOTE | 2021-10-10 08:26 | PN.OBGYN_ITS ---
Subjective Subjective Patient doing well without complaints. Tolerating PO. Ambulating without difficulty. Feeding well. Denies chest pain, shortness of breath, calf pain/swelling, fevers, chills, lightheadedness. Objective Data Objective Data Vital Signs: Vital Signs Temp Pulse Resp BP Pulse Ox 97.8 F 80 16 114/65 97 10/10/21 05:30 10/10/21 05:30 10/10/21 05:30 10/10/21 05:30 10/10/21 05:30 Oxygen Delivery Method Room Air Weight: 172 lb Body Mass Index (BMI) 27.7 Intake & Output: Intake and Output for Last 24 Hours 10/08/21 10/09/21 10/10/21 23:59 23:59 23:59 Intake Total 1286.67 / 1286.67 Output Total 800 / 800 Balance 1286.67 / 1286.67 -800 / -800 Lab / Micro Data Result Diagrams: 10/09/21 18:45 Labs: Laboratory Results - last 24 hr 10/09/21 18:45: WBC 11.5 H, RBC 4.41, Hgb 11.8 L, Hct 38.2, MCV 86.6, MCH 26.8 L , MCHC 30.9 L, RDW Std Deviation 44.6 H, RDW Coeff of Maxx 14.3, Plt Count 274, MPV 10.8, Immature Gran % (Auto) 0.500, Neut % (Auto) 76.7 H, Lymph % (Auto) 16.6 L, Hinds % (Auto) 5.4, Eos % (Auto) 0.5, Baso % (Auto) 0.3, Absolute Neuts (auto) 8.8 H, Absolute Lymphs (auto) 1.91, Nucleated RBC % 0 10/09/21 18:45: Blood Type B POSITIVE, Antibody Screen NEGATIVE Micro: Microbiology 10/09/21 18:45 Nasal Secretion SARS-CoV-2 Antigen (Rapid) - Final ROS Constitutional Constitutional: Denies chills, fatigue, fever(s), poor appetite or weakness Eyes Eyes: Denies blurry vision, change in vision, seeing flashes or spots in vision ENT HEENT: Denies dizziness, headache(s), loss taste/smell or sore throat Cardiovascular Cardiovascular: Denies chest pain, dizziness, dyspnea, irregular heart rhythm, palpitations or rapid heart rate Respiratory/Chest Respiratory/Chest: Denies chest tightness, cough, dyspnea or breast pain Gastrointestinal Gastrointestinal: Denies abdominal pain, constipation or vomiting Genitourinary Genitourinary: Denies dysuria or flank pain Musculoskeletal Musculoskeletal: Denies difficulty walking, joint pain, limited range of motion or numbness Neurologic Neurologic: Denies abnormal movements, abnormal speech, dizziness, numbness, s eizure-like activity or syncope Psychiatric Psychiatric: Denies anxiety, behavioral changes, change in appetite, confusion, depression or suicidal thoughts Physical Exam Const alert, oriented x3 and no apparent distress General Appearance: cooperative and comfortable Resp normal respiratory effort Cardio regular rate GI normal to inspection, nondistended, normoactive bowel sounds GI Narrative: uterus is firm below umbilicus Palpation: soft Bimanual Exam - Adnexa, Other: Negative for cul-de-sac fullness Back/Spine no CVA tenderness and thoraco-lumbar ROM normal Extremity normal to inspection, no clubbing, cyanosis or edema, no calf tenderness and no pedal edema Psych mental status grossly normal, thought process normal, cooperative, affect norm al, speech normal, activity/motor behavior normal, denies homicidal ideation and denies suicidal ideation Assessment & Plan (1) Status post vaginal delivery: PLAN: s/p PPD #1 1. routine post delivery care 2. breast feeding- support given 3. rh positive 4. rubella immune 5. consider dc to home at 24 hrs
--- NOTE | 2021-10-14 14:51 | NURSING ---
Follow up call... Doing pretty good. Had a first degree with repair, having burning from that , suggested using the claus bottle, discussed UTI Symptoms. Overall good, I was able to recognize the night i was in labor was very busy , Took a while to get an epidural and then it didn't work well because i was far along so it felt like I didn't have an epidural but was still overall very satisfied and loved and appreciated the nurses that helped me through that.
== END 2021-10-10 22:00 | disposition home or self-care (01) | DRG 807 ==
LOC: WP 18:42
PROVIDERS: Admitting Provider Obstetrics & Gynecology; PCP Student in an Organized Health Care Education/Training Program; Visit Provider Obstetrics & Gynecology
DX: O48.0 Post-term pregnancy (principal); Z37.0 Single live birth; K21.9 Gastro-esophageal reflux disease without esophagitis; L30.9 Dermatitis, unspecified; O99.62 Diseases of the digestive system complicating childbirth; O70.0 First degree perineal laceration during delivery; Z20.822 Contact with and (suspected) exposure to COVID-19; O99.72 Diseases of the skin and subcutaneous tissue complicating childbirth; Z3A.41 41 weeks gestation of pregnancy
CPT/HCPCS: 59025; 59050; 85025; 86850; 86900; 86901; 87426; 99218; J7120; G0378

== ENCOUNTER → 2022-04-15 | Outpatient (CLI) | payer OTHER, SELFPAY ==
[2022-04-15 13:15] LABS: Erythrocyte Sedimentation Rate < 1 mm/hr (0-30)
[2022-04-15 13:18] LABS: Absolute Lymphocyte Count 1.31 X10^3/uL (0.83-4.51); Absolute Neutrophil Count 2.8 X10^3/uL (2.0-7.7); Basophil# 0.04 X10^3/uL; Basophil% 0.9 % (0-1); Eosinophil# 0.11 X10^3/uL; Eosinophils% 2.4 % (0-5); Hematocrit 41.6 % (37-47); Hemoglobin 13.6 g/dL (12.0-15.0); Lymphocyte # 1.31 X10^3/ul (0.83-4.51); Lymphocyte % 28.2 % (19-41); Mean Corp Hgb Conc 32.7 g/dL (32-36); Mean Corpuscular Hgb 30.6 pg (27.0-32.0); Mean Corpuscular Volume 93.5 fL (81-99); Mean Platelet Vol. 10.6 fl (6.2-12.0); Monocyte# 0.39 X10^3/uL; Monocyte% 8.4 % (0-10); NRBC Flagged by Analyzer 0 % (0-5); Neutrophil # 2.79 X10^3/uL (2.7-7.7); Neutrophil % 60.1 % (47-70); Platelet Count 282 K/mm3 (150-450); RBC Distribution Width CV 13.1 % (11.6-14.6); RBC Distribution Width SD 44.6 fl (35.1-43.9); Red Blood Count 4.45 M/mm3 (4.2-5.4); White Blood Count 4.6 K/mm3 (4.4-11.0)
[2022-04-15 13:51] LABS: ALB/GLOB Ratio 1.3 RATIO (0.9-2.4); AST(SGOT) 12 U/L (15-37); Alanine Aminotransfer ALT/SGPT 20 U/L (13-56); Alkaline Phosphatase 72 U/L (45-117); Anion Gap 6 (5-15); BUN 16 mg/dL (7-18); BUN/Creat Ratio 25.7 RATIO (10-20); CRP < 2.90 mg/L (0.0-3.0); Calcium,Total 8.6 mg/dL (8.5-10.1); Chloride 105 mmol/L (98-107); Creatinine, Serum 0.62 mg/dL (0.55-1.02); EST Glomerular Filtration Rate 118 mL/min (>60); Est Glom Filt Rate - Afr Amer 143 mL/min (>60); Globulin 3.1 g/dL (2.2-4.2); Glucose 92 mg/dL (74-106); LDH 140 U/L (84-246); Potassium 3.6 mmol/L (3.5-5.1); Protein, Total 7.1 g/dL (6.4-8.2); Sodium Level 140 mmol/L (136-145)
[2022-04-16 15:08] LABS: Anti-Centromere B Ab <0.2 AI (0.0-0.9); Anti-Chromatin <0.2 AI (0.0-0.9); Anti-Jo <0.2 AI (0.0-0.9); Anti-Scleroderma-70 AB <0.2 AI (0.0-0.9); RNP Ab 0.2 AI (0.0-0.9); SJOGREN'S Anti-SS-A test < 0.2 AI (0.0-0.9); SJOGREN'S Anti-SS-B test < 0.2 AI (0.0-0.9); Smith Ab <0.2 AI (0.0-0.9)
[2022-04-16 16:09] LABS: Endomysial Antibody IgA Negative (Negative); Immunoglobulin A 52 mg/dL (87-352)
[2022-04-16 20:32] LABS: t-Transglutaminase IgA <2 U/mL (0-3)
[2022-04-18 13:24] LABS: Anti-dsDNA Ab <1 IU/mL (0-9)
[2022-04-19 16:08] LABS: Albumin 4.6 g/dL (2.9-4.4); Alpha-1-Globulins 0.2 g/dL (0.0-0.4); Alpha-2-Globulins 0.5 g/dL (0.4-1.0); Cytoplasmic Ab (C-ANCA) <1:20 titer (Neg:<1:20); Gamma Globulin 1.1 g/dL (0.4-1.8); Immunoglobulin A 53 mg/dL (87-352); Immunoglobulin E 8 IU/mL (6-495); Immunoglobulin G 1163 mg/dL (586-1602); Immunoglobulin M 90 mg/dL (26-217); PROEL- TOTAL PROTEIN 7.2 g/dL (6.0-8.5)
[2022-04-19 20:27] LABS: Perinuclear Ab (P-ANCA) 1:20 titer (Neg:<1:20)
== END | disposition home or self-care (01) ==
PROVIDERS: PCP Student in an Organized Health Care Education/Training Program; Referring Provider Nurse Practitioner Adult Health; Visit Provider Nurse Practitioner Adult Health
DX: K21.9 Gastro-esophageal reflux disease without esophagitis (principal); R10.9 Unspecified abdominal pain; R19.7 Diarrhea, unspecified
CPT/HCPCS: 36415; 80053; 82784; 82785; 83516; 83615; 84165; 85025; 85652; 86140; 86225; 86235; 86255; 86256; 86334

== ENCOUNTER → 2022-04-16 | Outpatient (CLI) | payer OTHER, SELFPAY ==
[2022-04-18 16:35] LABS: Calprotectin, Stool <16 ug/g (0-120)
== END | disposition home or self-care (01) ==
LOC: LABSPEC 08:57
PROVIDERS: PCP Student in an Organized Health Care Education/Training Program; Visit Provider Nurse Practitioner Adult Health
DX: R19.7 Diarrhea, unspecified (principal); R10.9 Unspecified abdominal pain; K21.9 Gastro-esophageal reflux disease without esophagitis
CPT/HCPCS: 83630; 83993

== ENCOUNTER → 2022-04-18 | Outpatient (CLI) | payer OTHER, SELFPAY ==
--- NOTE | 2022-04-18 19:04 | CT_ITS ---
STUDY: CT ABDOMEN AND PELVIS WITH CONTRAST REASON FOR EXAM: Female, 31 years old. chronic diarrhea, abd pain RADIATION DOSAGE (If Supplied By Facility): CTDIvol = ( 10.38 ) mGy, DLP = ( 366.48 ) mGycm TECHNIQUE: Transaxial images were obtained from the dome of the diaphragm to the symphysis pubis with oral contrast. Oral and amp; IV Readi-CAT and amp; 100mL Isovue-300 was administered. Sagittal and coronal images were reconstructed. Individualized dose optimization techniques were used for this CT. COMPARISON: None. FINDINGS: The visualized lung bases are unremarkable. The visualized portions of the heart are within normal limits. Normal liver. Normal gallbladder and extrahepatic biliary system. Normal spleen. Normal pancreas. Normal bilateral adrenal glands. Normal right kidney. Normal left kidney. Normal visualized stomach. Normal small intestine. Normal colon. There is non-visualization of the appendix. Normal abdominal aorta. Normal inferior vena cava. Normal retroperitoneum. Normal urinary bladder. 5.5 cm cystic mass in the cul-de-sac likely consistent with an ovarian cyst. Correlation with pelvic ultrasound would be useful. Normal abdominal wall. Mild levoscoliosis of lumbar spine. CT/Abdomen/Pelvis WITH Contrast IMPRESSION: 5.5 cm probable ovarian cystic mass in the cul-de-sac and correlation with pelvic ultrasound would be useful. Electronically Signed: Geoff Puente MD at 20:10 EST ,
== END | disposition home or self-care (01) ==
LOC: CT 19:03
PROVIDERS: PCP Student in an Organized Health Care Education/Training Program; Visit Provider Nurse Practitioner Adult Health
DX: R10.9 Unspecified abdominal pain (principal); R19.7 Diarrhea, unspecified
CPT/HCPCS: 74177; Q9967

== ENCOUNTER 2022-04-21 13:01 | Outpatient (CLI) | payer OTHER, SELFPAY | END 2022-04-21 23:59 | disposition home or self-care (01) | LOC: LAB 13:04 | PROVIDERS: PCP Student in an Organized Health Care Education/Training Program; Referring Provider Nurse Practitioner Adult Health; Visit Provider Nurse Practitioner Adult Health | DX: R76.8 Other specified abnormal immunological findings in serum (principal) | CPT/HCPCS: 36415; 86256 ==

== ENCOUNTER → 2022-04-25 | Outpatient (CLI) | payer SELFPAY, OTHER ==
--- NOTE | 2022-04-25 09:49 | US_ITS ---
STUDY: ABDOMINAL ULTRASOUND REASON FOR EXAM: Female, 31 years old. Postprandial diarrhea, abd pain TECHNIQUE: Transabdominal ultrasound was performed with real-time and static white scale imaging. TECHNICAL QUALITY: Adequate. COMPARISON: None. FINDINGS: Liver: The liver measures 16 cm. There is normal echogenicity of the liver. The bile ducts are within normal limits. There is hepatic color flow. The direction of portal flow is hepatopetal. There is no demonstrated mass lesion. Portal vein measurement: Gallbladder: Normal distended gallbladder. The gallbladder wall measures 1.7 mm. There is a negative sonographic Mosley''s sign. There is no pericholecystic fluid. There are no gallstones. Common Bile Duct (C.B.D.): The common bile duct measures 2.7 mm. Pancreas: Normal size of the head, body and tail of the pancreas. There is normal echogenicity of the pancreas. There is no demonstrated pancreatic mass or cyst. Spleen: Normal size of the spleen. The spleen measures 10.4 cm x 4.5 cm x 3.7 cm. Right Kidney: Normal size of the right kidney. The right kidney measures 10.5 cm x 5.2 cm x 3.6 cm. Normal renal cortex. The right cortex measures 1.3 cm. There is no demonstrated renal mass or cyst. There is no right hydronephrosis. Left Kidney: Normal size of the left kidney. The left kidney measures 11 cm x 5.2 cm x 4.7 cm. Normal renal cortex. The left cortex measures 1.5 cm. There is no demonstrated renal mass or cyst. There is no left hydronephrosis. Aorta: Unremarkable I.V.C.: The IVC is patent. There is no ascites. US/Abdomen Complete IMPRESSION: Normal abdominal ultrasound examination. Electronically Signed: Kam Rice MD at 14:42 EST ,
== END | disposition home or self-care (01) ==
PROVIDERS: PCP Student in an Organized Health Care Education/Training Program; Visit Provider Nurse Practitioner Adult Health
DX: R10.9 Unspecified abdominal pain (principal); R19.7 Diarrhea, unspecified
CPT/HCPCS: 76700

== ENCOUNTER → 2022-05-06 | Outpatient (CLI) | payer OTHER, SELFPAY ==
--- NOTE | 2022-05-06 12:32 | US_ITS ---
INDICATION: MASS US - Pelvic, Tvag EXAMINATION: Ultrasound US Pelvis Non OB Complete With Transvaginal Imaging TECHNIQUE: Transabdominal and transvaginal pelvic ultrasound was performed. Grayscale, spectral waveform, and color flow Doppler evaluation of the adnexa. COMPARISON: CT abdomen/pelvis with contrast from 04/18/2022. FINDINGS: UTERUS: Anteverted. The uterus measures 9.3 x 5.2 x 5.1 cm. There are a few small nabothian cysts. No uterine masses. The endometrial stripe measures 5.6 mm in AP diameter which is within normal limits. RIGHT OVARY: 4.7 x 3.1 x 2.7 cm. Non-enlarged, normal echogenicity. There is normal arterial inflow and venous outflow present in the right ovary. LEFT OVARY: 4.4 x 6.4 x 4.1 cm. There is a 4.3 x 5.1 x 3.5 cm left ovarian cyst. There is a 2.4 x 2.1 x 2.0 cm cystic lesion in the left adnexa appears separate from the left ovary.. There is normal arterial inflow and venous outflow present in the left ovary. FREE FLUID: Small volume likely physiologic free fluid. US/Pelvic (Non ) IMPRESSION: 4.3 x 5.1 x 3.5 cm left ovarian cyst likely correlates to the finding seen on CT. Additional 2.4 cm cystic lesion in the left adnexa may be separate from the left ovary and could relate to a paraovarian cyst. Normal DOPPLER flow to both ovaries. Electronically Signed: Mohsen Harrell, at 14:48 EST ,
== END | disposition home or self-care (01) ==
LOC: OPUS 12:27
PROVIDERS: PCP Student in an Organized Health Care Education/Training Program; Referring Provider Nurse Practitioner Adult Health; Visit Provider Nurse Practitioner Adult Health
DX: R19.00 Intra-abdominal and pelvic swelling, mass and lump, unspecified site (principal)
CPT/HCPCS: 76830; 76856

== ENCOUNTER 2022-06-11 08:58 | Day surgery (SDC) | payer OTHER, SELFPAY ==
[2022-06-11] VITALS (7 sets, daily range): BP systolic 100–127; BP diastolic 66–76; PULSE 82–103; RESP 14–18; TEMP 36.6–36.9; O2SAT 99–100; BMI 20.1
--- NOTE | 2022-06-11 09:22 | HP.PCM_ITS ---
History and Physical 31 F who presents to the office today to establish with GI for acid reflux, diarrhea, abdominal pain. Diarrhea is most bothersome symptom. Problematic since 06/2019. Impacts her QOL, feels like she is limited in where she can go. Worse with anxiety. No diarrhea when in 2020. The baby is now 6 mos old, her diarrhea has progressed since his . Had worse acid reflux when . Still has some acid reflux, then she'll have increased gas and bloat, as well as mucus in the stool. No melena or hematochezia. Intermittent nausea, no vomiting. No early satiety, but can't eat or drink much at one sitting due to reflux. Notices symptoms flare with menses. She is currently but has had 2 periods. Acid reflux since age 12. Having to skip meals so that she isn't symptomatic when seeing a client. Burning and pressure retrosternally, frequent belching. Frequent burning and gnawing in epigastrium, especially at night. Can feel like it's difficult to swallow when acid reflux has flared; food hasn't gotten stuck. Multiple loose stools per day. This week she almost feels constipated which is very rare. Gets cramping and feeling of urgency but then no BM, might then have a normal stool or no stool at all. 1-2x per month she gets bouts of diarrhea, usually 1 hr after lunch that lasts for about 2 hrs. Almost always after eating. Has restricted her diet because of this. No nocturnal diarrhea. No meds currently, prefers to avoid meds whenever possible. Diarrhea worsened on sucralfate that Dr Ora Sheikh prescribed. She is dairy-free due to lactose intolerance. Tried months of gluten-free diet w/o relief. Previously saw a GI doctor, was treated with amitriptyline for IBS w/ only mild relief, she tolerated it but gained weight. No prior EGD or colonoscopy. 10/2019 small bowel series was normal. Mother had IBS, RA, Tatiana thyroiditis. Hx exercise induced asthma. No significant seasonal/environmental allergies. Hx PCOS. 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 [employer] Constitutional: Positive for fatigue and weight change ENT ENT: Positive for difficulty swallowing Gastro GI: Positive for abdominal pain, bloating, change in bowel habits, constipation, diarrhea, heartburn, difficulty swallowing, excessive flatus and nausea/dyspepsia; No belching, change in stool character, coffee ground emesis, cramping, feeling full early, incontinent of stools, Vomiting blood/hematemesis, Blood in stool, loose stools, Black,tarry stools, pain with swallowing, vomiting or other Musc Musculoskeletal: Positive for muscle weakness, stiffness and sciatica; No joint pain Skin Skin: No yellowing of the eye or itchy eyes Psych Psychiatric: Positive for anxiety and Positive for depression Endo Endocrine: Positive for fatigue and weight change Aller/Imm Allergy/Immunologic: No itchy eyes Fabian/Lymp Hematologic/Lymphatic: No easy bleeding or easy bruising Exam Const General: cooperative, healthy appearing and comfortable Nutritional Appearance: thin Orientation: alert, awake and oriented x3 HENMT Head: normal to inspection Eyes Conjunctivae: conjunctivae normal Sclera: sclerae normal Resp Effort & Inspection: normal respiratory effort GI Inspection: normal to inspection Palpation: soft, no hepatosplenomegaly, no masses and tender in the LLQ and in the RLQ Skin General: no rashes or lesions noted Neuro Gait: normal gait Quality Reporting Tobacco Screening ([facility] 138) Smoking Status: Never smoker Assessment and Plan Assessment and Plan (1) GERD (gastroesophageal reflux disease): ?Status:?Acute ?Plan: 31 yr old female with acid reflux, diarrhea, abdominal pain, tenesmus, tender on exam RLQ and LLQ DDx includes gastritis, PUD, H pylori, bile reflux, GB disease, IBS, IBD RUQ US to evaluate gallbladder CT abd pel w/ oral and IV contrast for chronic diarrhea, abd pain, lower abd tenderness Blood tests, stool tests EGD and Colonoscopy, w/ office f/u 2 wks later She declines meds at this time, prefers to avoid meds when possible, and she is currently breast feeding (2) Diarrhea: ?Status:?Acute ?Plan: as above (3) Abdominal pain: ?Status:?Acute ?Plan: as above ? ? ? Orders: Orders Comprehensive Metabolic Profil 04/15/22 K21.9 - Gastro-esophageal reflu x disease without esophagitis, R10.9 - Unspecified abdominal pain, R19.7 - Diarrhea, unspecified ? CRP 04/15/22 K21.9 - Gastro-esophageal reflu x disease without esophagitis, R10.9 - Unspecified abdominal pain, R19.7 - Diarrhea, unspecified ? LDH 04/15/22 K21.9 - Gastro-esophageal reflu x disease without esophagitis, R10.9 - Unspecified abdominal pain, R19.7 - Diarrhea, unspecified ? CBC W/Diff, Automated 04/15/22 K21.9 - Gastro-esophageal reflu x disease without esophagitis, R10.9 - Unspecified abdominal pain, R19.7 - Diarrhea, unspecified ? Erythrocyte Sed Rate 04/15/22 K21.9 - Gastro-esophageal reflu x disease without esophagitis, R10.9 - Unspecified abdominal pain, R19.7 - Diarrhea, unspecified ? KELVIN Comprehensive Panel 04/15/22 K21.9 - Gastro-esophageal reflu x disease without esophagitis, R10.9 - Unspecified abdominal pain, R19.7 - Diarrhea, unspecified ? Calprotectin, Stool 04/16/22 K21.9 - Gastro-esophageal reflu x disease without esophagitis, R10.9 - Unspecified abdominal pain, R19.7 - Diarrhea, unspecified ? Stool Lactoferrin/WBC 04/16/22 K21.9 - Gastro-esophageal reflu x disease without esophagitis, K58.9 - Irritable bowel syndrome without diarrhea, R10.9 - Unspecified abdominal pain, R19.7 - Diarrhea, unspecified ? ANCA 04/15/22 K21.9 - Gastro-esophageal reflu x disease without esophagitis, R10.9 - Unspecified abdominal pain, R19.7 - Diarrhea, unspecified ? Celiac Disease Profile 04/15/22 K21.9 - Gastro-esophageal reflu x disease without esophagitis, R10.9 - Unspecified abdominal pain, R19.7 - Diarrhea, unspecified ? Immunoglobulins G/A/M/E 04/15/22 K21.9 - Gastro-esophageal reflu x disease without esophagitis, R10.9 - Unspecified abdominal pain, R19.7 - Diarrhea, unspecified ? VISH + Protein Elect, Serum 04/15/22 K21.9 - Gastro-esophageal reflu x disease without esophagitis, R10.9 - Unspecified abdominal pain, R19.7 - Diarrhea, unspecified ? Miscellaneous Lab Procedure 04/15/22 K21.9 - Gastro-esophageal reflu x disease without esophagitis, R10.9 - Unspecified abdominal pain, R19.7 - Diarrhea, unspecified ? Abdomen/Pelvis WITH Contrast 04/15/22 R10.9 - Unspecified abdominal p ain, R19.7 - Diarrhea, unspecified ? Abdomen Complete 04/15/22 R10.9 - Unspecified abdominal p ain, R19.7 - Diarrhea, unspecified ? I have examined the patient and the H&P has been reviewed. There are no clinical changes since date of exam.
[2022-06-11 09:24] LABS: Internal QC Validated? YES +Cl - CLEAR BKGD; Pregnancy, Urine Negative Negative
[2022-06-11] MEDS: Lactated Ringers 1,000 ML 15 ML IV (09:27)
--- NOTE | 2022-06-11 10:15 | IMM_PTH ---
PATIENT: DANYELL COCHRAN LOC: EN U#:[id number] AGE/SX: 32/F ROOM: RE06/11/[address]: Dr. Dale Maxwell DO : 1990 BED: DIS: 06/11/2022 SPEC #: [id number] RECD: 06/11/22 13:20 STATUS: XOCHILT REAnderson #: [id number] COLLEEN: 06/11/22 10:[address]: Dale Maxwell DEPT: IMMUNOHISTOCHEMISTRY RECD BY: Patricia Hickman ENTERED: 06/11/22 13:21 SP TYPE: IMMUNO OTHR DR: Dr. Ad Call DO Tissues: B - Stomach, NOS Procedures: H Pylori (initial) PHYSICIAN & INSTITUTION [place] [id number] SPECIMEN INFORMATION: Tissue Source: B ? Gastric body Clinical Info: GERD, diarrhea, abdominal pain Specimen Number: [id number] CPT code: 00281 METHODOLOGY: Deparaffinized sections of prefer/formalin-fixed tissue or PAP/DQ stained slides are incubated with monoclonal/polyclonal antibodies/oligonucleotide probes. Localization is made via biotin free immunoperoxidase method. Appropriate controls are performed and reacted as expected. Results on target cell population are indicated in the following table: RESULTS: ANTIBODY / CLONE RESULT Block B H Pylori (polyclonal) negative These tests were developed and their performance characteristics determined by [facility]. They may not have been cleared or approved by the U.S. Food and Drug Administration. The FDA has determined that such clearance or approval is not necessary. The above immunohistochemical/dualISH markers are ordered and reviewed by the Pathologist. INTERPRETATION: B. Gastric body, biopsy: Negative for Helicobacter pylori organisms. SJ:sony 06/12/2022
--- NOTE | 2022-06-11 10:15 | COLBX_PTH ---
PATIENT: DANYELL COCHRAN LOC: EN U#:[id number] AGE/SX: 32/F ROOM: RE06/11/[address]: Dr. Dale Maxwell DO : 1990 BED: DIS: 06/11/2022 SPEC #: [id number] RECD: 06/11/22 11:50 STATUS: XOCHILT REAnderson #: [id number] COLLEEN: 06/11/22 10:[address]: Dale Maxwell DEPT: SURGICAL PATHOLOGY RECD BY: Brittni De Jesus ENTERED: 06/11/22 13:45 SP TYPE: COLON BX OTHR DR: Dr. Ad Call DO Tissues: A - Duodenum, NOS B - Gastric mucous membrane C - Esophageal mucous membrane D - COLON BIOPSY Procedures: Special Stain Group II Surgery Specimen Level IV Alcian Blue/PAS (control) HEADER OPERATION: Colonoscopy, EGD (MAC) and biopsy PRE-OP DIAGNOSIS: GERD, diarrhea, abdominal pain TISSUE SUBMITTED: A - Duodenum biopsy, B - Gastric body, H. pylori and path, C - Distal esophagus biopsy, D - Random colonic biopsies MICROSCOPIC DIAGNOSIS A. Duodenum, biopsy: Fragments of duodenal mucosa, no pathologic diagnosis. B. Gastric body, biopsy: Mild gastritis. See microscopic description and comment. C. Distal esophagus, biopsy: A fragment of gastric mucosa with mild chronic inflammation. Intestinal metaplasia (goblet cell metaplasia) not identified. D. Colon, random biopsy: Fragments of colonic mucosa, no pathologic diagnosis. See comment. SJ:sony 06/12/2022 COMMENT B. The results of immunohistochemistry for Helicobacter pylori will be reported separately ([id number]). C. Alcian blue/PAS stain with matched control is used in the evaluation of the specimen. D. A fragment of gastroesophageal mucosa is also present in the specimen with focal ulceration and associated acute inflammation. This may represent contaminant from specimen C. Case has been reviewed in consultation with Dr. Loomis who concurs with the above diagnosis. IDC:AM MICROSCOPIC DESCRIPTION Slides are reviewed. B. The specimen shows fragments of gastric mucosa with chronic inflammatory cell infiltrates in the lamina propria consisting of lymphocytes and plasma cells, consistent with mild chronic gastritis. GROSS DESCRIPTION A - Received in fixative is one container labeled with the patient's name and designated duodenum biopsy. The specimen consists of multiple irregular fragments of light hayes soft tissue that in aggregate measure 0.6 x 0.4 x 0.1 cm. The specimen is totally submitted in one cassette. B - Received in fixative is one container labeled with the patient's name and designated gastric body biopsy. The specimen consists of two irregular fragments of light hayes soft tissue that in aggregate measure 0.6 x 0.3 x 0.1 cm. The specimen is totally submitted in one cassette. C - Received in fixative is one container labeled with the patient's name and designated distal esophagus biopsy. The specimen consists of one irregular fragment of light hayes soft tissue that measures 0.4 x 0.3 x 0.1 cm. The specimen is totally submitted in one cassette. D - Received in fixative is one container labeled with the patient's name and designated random colonic biopsy. The specimen consists of multiple irregular fragments of light hayes soft tissue that in aggregate measure 1.2 x 0.5 x 0.1 cm. The specimen is totally submitted in one cassette. / SJ:sony 06/11/2022 TC:2 CPT: 23283 x4, 32840
--- NOTE | 2022-06-11 11:01 | OP.EGD_ITS ---
Patient Name: Eula Mehta Procedure Date: 06/11/2022 10:13 AM Date of : 1990 Age: 32 Procedure: Upper GI endoscopy Indications: Epigastric abdominal pain, Functional Dyspepsia Providers: Dale Maxwell DO Medicines: Monitored Anesthesia Care Patient Profile: This is a 32 year old female. Refer to note in patient chart for documentation of history and physical. Patient has symptoms of chronic epigastric abdominal pain and chronic dyspepsia. Complications: No immediate complications. Procedure: Pre-Anesthesia Assessment: - Prior to the procedure, a History and Physical was performed, and patient medications and allergies were reviewed. The patient is competent. The risks and benefits of the procedure and the sedation options and risks were discussed with the patient. All questions were answered and informed consent was obtained. Patient identification and proposed procedure were verified by the physician in the pre-procedure area. Mental Status Examination: alert and oriented. Airway Examination: normal oropharyngeal airway and neck mobility. Respiratory Examination: clear to auscultation. CV Examination: normal. Prophylactic Antibiotics: The patient does not require prophylactic antibiotics. Prior Anticoagulants: The patient has taken no previous anticoagulant or antiplatelet agents. ASA Grade Assessment: II - A patient with mild systemic disease. After reviewing the risks and benefits, the patient was deemed in satisfactory condition to undergo the procedure. The anesthesia plan was to use moderate sedation / analgesia (conscious sedation). Immediately prior to administration of medications, the patient was re-assessed for adequacy to receive sedatives. The heart rate, respiratory rate, oxygen saturations, blood pressure, adequacy of pulmonary ventilation, and response to care were monitored throughout the procedure. The physical status of the patient was re-assessed after the procedure. After obtaining informed consent, the endoscope was passed under direct vision. Throughout the procedure, the patient's blood pressure, pulse, and oxygen saturations were monitored continuously. The colonoscope was introduced through the mouth, and advanced to the second part of duodenum. The upper GI endoscopy was accomplished without difficulty. The patient tolerated the procedure well. Scope In: 10:28:30 AM Scope Out: 10:34:14 AM Total Procedure Duration Time 0 hours 5 minutes 44 seconds Findings: LA Grade A (one or more mucosal breaks less than 5 mm, not extending between tops of 2 mucosal folds) esophagitis with no bleeding was found 34 to 35 cm from the incisors. Biopsies were taken with a cold forceps for histology. Verification of patient identification for the specimen was done. Estimated blood loss was minimal. Mild inflammation characterized by congestion (edema) was found in the gastric body. Biopsies were taken with a cold forceps for histology. Verification of patient identification for the specimen was done. Estimated blood loss was minimal. No gross lesions were noted in the second portion of the duodenum. Biopsies were taken with a cold forceps for histology. Verification of patient identification for the specimen was done. Estimated blood loss was minimal. Impression: - LA Grade A reflux esophagitis. Biopsied. - Gastritis. Biopsied. - No gross lesions in the second portion of the duodenum. Biopsied. Recommendation: - Discharge patient to home. - Resume previous diet. - Continue present medications. - Await pathology results. Procedure Code(s): --- Professional --- 92576, Esophagogastroduodenoscopy, flexible, transoral; with biopsy, single or multiple CPT copyright 2017 [employer]. All rights reserved. The codes documented in this report are preliminary and upon interviewing clerk review may be revised to meet current compliance requirements. Dale Maxwell DO 06/11/2022 11:00:49 AM This report has been signed electronically. Number of Addenda: 0 Note Initiated On: 06/11/2022 10:13 AM
--- NOTE | 2022-06-11 11:02 | OP.CCLET_ITS ---
06/11/2022 Ad [address] [place] [address] Re : Upper GI endoscopy procedure for Eula Mehta Dear Dr. Call This procedure was performed on Saturday, June 11, 2022. My impressions and recommendations are as follows: Impressions : - LA Grade A reflux esophagitis. Biopsied. - Gastritis. Biopsied. - No gross lesions in the second portion of the duodenum. Biopsied. Recommendations : - Discharge patient to home. - Resume previous diet. - Continue present medications. - Await pathology results. My findings are described in the full procedure note, which is enclosed. If I can be of further assistance, please feel free to contact me at . Sincerely, Dale Maxwell, 06/11/2022 11:00:49 AM This report has been signed electronically.
--- NOTE | 2022-06-11 11:05 | OP.COLON_ITS ---
Patient Name: Eula Mehta Procedure Date: 06/11/2022 10:34 AM Date of : 1990 Age: 32 Procedure: Colonoscopy Indications: Generalized abdominal pain Providers: Dale Maxwell DO Medicines: Monitored Anesthesia Care Patient Profile: This is a 32 year old female. Refer to note in patient chart for documentation of history and physical. Patient has symptoms of chronic epigastric abdominal pain and chronic dyspepsia. Last Colonoscopy: none. The patient's first colonoscopy is today. Complications: No immediate complications. Procedure: Pre-Anesthesia Assessment: - Prior to the procedure, a History and Physical was performed, and patient medications and allergies were reviewed. The patient is competent. The risks and benefits of the procedure and the sedation options and risks were discussed with the patient. All questions were answered and informed consent was obtained. Patient identification and proposed procedure were verified by the physician in the pre-procedure area. Mental Status Examination: alert and oriented. Airway Examination: normal oropharyngeal airway and neck mobility. Respiratory Examination: clear to auscultation. CV Examination: normal. Prophylactic Antibiotics: The patient does not require prophylactic antibiotics. Prior Anticoagulants: The patient has taken no previous anticoagulant or antiplatelet agents. ASA Grade Assessment: II - A patient with mild systemic disease. After reviewing the risks and benefits, the patient was deemed in satisfactory condition to undergo the procedure. The anesthesia plan was to use moderate sedation / analgesia (conscious sedation). Immediately prior to administration of medications, the patient was re-assessed for adequacy to receive sedatives. The heart rate, respiratory rate, oxygen saturations, blood pressure, adequacy of pulmonary ventilation, and response to care were monitored throughout the procedure. The physical status of the patient was re-assessed after the procedure. After I obtained informed consent, the scope was passed under direct vision. Throughout the procedure, the patient's blood pressure, pulse, and oxygen saturations were monitored continuously. The colonoscope was introduced through the anus and advanced to the cecum, identified by appendiceal orifice and ileocecal valve. The colonoscopy was performed without difficulty. The patient tolerated the procedure well. The quality of the bowel preparation was fair. Scope In: 10:36:56 AM Scope Withdrawal Time 0 hours 9 minutes 27 seconds Scope Out: 10:50:39 AM Total Procedure Duration Time 0 hours 13 minutes 43 seconds Findings: The perianal and digital rectal examinations were normal. Stool was found at the hepatic flexure, in the ascending colon and in the cecum, precluding visualization. An area of mildly congested mucosa was found in the recto-sigmoid colon. Biopsies were taken with a cold forceps for histology. Verification of patient identification for the specimen was done. Estimated blood loss was minimal. Impression: - Preparation of the colon was fair. - Stool at the hepatic flexure, in the ascending colon and in the cecum. - Congested mucosa in the recto-sigmoid colon. Biopsied. Recommendation: - Discharge patient to home. - Resume previous diet. - Continue present medications. - Await pathology results. - Repeat colonoscopy for screening purposes. Procedure Code(s): --- Professional --- 16370, Colonoscopy, flexible; with biopsy, single or multiple CPT copyright 2017 [employer]. All rights reserved. The codes documented in this report are preliminary and upon date night caregiver review may be revised to meet current compliance requirements. Dale Maxwell DO 06/11/2022 11:05:29 AM This report has been signed electronically. Number of Addenda: 0 Note Initiated On: 06/11/2022 10:34 AM
--- NOTE | 2022-06-11 11:06 | OP.CCLET_ITS ---
06/11/2022 [address] [place] [address] Re : Colonoscopy procedure for Eula Mehta Dear Dr. Call This procedure was performed on Saturday, June 11, 2022. My impressions and recommendations are as follows: Impressions : - Preparation of the colon was fair. - Stool at the hepatic flexure, in the ascending colon and in the cecum. - Congested mucosa in the recto-sigmoid colon. Biopsied. Recommendations : - Discharge patient to home. - Resume previous diet. - Continue present medications. - Await pathology results. - Repeat colonoscopy for screening purposes. My findings are described in the full procedure note, which is enclosed. If I can be of further assistance, please feel free to contact me at . Sincerely, Dale Maxwell, 06/11/2022 11:05:29 AM This report has been signed electronically.
== END 2022-06-11 11:34 | disposition home or self-care (01) ==
LOC: EN 08:59 → AC 09:01
PROVIDERS: Anesthesiology; PCP Student in an Organized Health Care Education/Training Program; Referring Provider Internal Medicine Gastroenterology; Visit Provider Internal Medicine Gastroenterology
PROC: 0DJD8ZZ Inspection of Lower Intestinal Tract, Via Natural or Artificial Opening Endoscopic (ICD-10-PCS; CPT 45378; principal; 2022-06-11 10:10)
DX: K21.00 Gastro-esophageal reflux disease with esophagitis, without bleeding (principal); K29.70 Gastritis, unspecified, without bleeding; E73.9 Lactose intolerance, unspecified; K58.0 Irritable bowel syndrome with diarrhea
CPT/HCPCS: 43239; 45380; 81025; 88305; 88313; 88342; J7120; J2405

== ENCOUNTER → 2022-06-20 | Outpatient (CLI) | payer OTHER, SELFPAY ==
--- NOTE | 2022-06-20 15:37 | US_ITS ---
INDICATION: F/U LTO CYST EXAMINATION: Ultrasound US Pelvis Non-OB Complete TECHNIQUE: Transabdominal and transvaginal pelvic ultrasound was performed. Grayscale, spectral waveform, and color flow Doppler evaluation of the adnexa. COMPARISON: 05/06/2022; 04/18/2022 CT abdomen/pelvis. FINDINGS: UTERUS: Anteverted. The uterus measures 9.0 x 6.1 x 4.5 cm. There is no uterine mass. The endometrial stripe measures 5 mm in AP diameter which is within normal limits. Nabothian cyst. RIGHT OVARY: 3.9 x 2.9 x 2.5 cm. Multiple follicles with a dominant cyst. There is normal arterial inflow and venous outflow present in the right ovary. LEFT OVARY: 6.5 x 6.1 x 3.8 cm. 4.7 x 4.0 x 2.9 cm cyst. There is normal arterial inflow and venous outflow present in the left ovary. 2.2 x 3.1 x 1.9 cm cystic structure adjacent to the ovary. Bilateral prominent adnexal vessels. FREE FLUID: None. US/Pelvic (Non ) IMPRESSION: Left ovarian cyst and adjacent cystic structure are not significantly changed compared to 05/06/2022. Electronically Signed: Booker Brooks MD at 0:01 EST ,
== END | disposition home or self-care (01) ==
LOC: US 15:36
PROVIDERS: PCP Student in an Organized Health Care Education/Training Program; Referring Provider Obstetrics & Gynecology; Visit Provider Obstetrics & Gynecology
DX: R10.9 Unspecified abdominal pain (principal); R10.2 Pelvic and perineal pain; R19.00 Intra-abdominal and pelvic swelling, mass and lump, unspecified site
CPT/HCPCS: 76856

== ENCOUNTER → 2023-06-05 | Outpatient (CLI) | payer OTHER, SELFPAY ==
[2023-06-10 00:06] LABS: Calprotectin, Stool 52 ug/g (0-120)
== END | disposition home or self-care (01) ==
LOC: LABSPEC 08:36
PROVIDERS: PCP Student in an Organized Health Care Education/Training Program; Referring Provider Internal Medicine Gastroenterology; Visit Provider Internal Medicine Gastroenterology
DX: R10.9 Unspecified abdominal pain (principal); K58.9 Irritable bowel syndrome, unspecified; R19.7 Diarrhea, unspecified
CPT/HCPCS: 83630; 83993; 87177; 87209; 87329; 87506

== ENCOUNTER 2023-08-13 21:45 | Emergency (ER) | payer OTHER, SELFPAY ==
[2023-08-13 21:46] VITALS: BP 144/97; PULSE 92; RESP 18; TEMP 37; O2SAT 100; BMI 22.7
--- NOTE | 2023-08-13 22:07 | CT_ITS ---
INDICATION: right flank pain EXAMINATION: CT ABDOMEN AND PELVIS WITHOUT CONTRAST - CT Abdomen And Pelvis W/O Contrast Injection TECHNIQUE: Helically acquired images were obtained of the abdomen and pelvis without oral or IV contrast. A radiation dose optimization technique was used for this scan. IV Contrast dosage and agent: None. Oral contrast: None. COMPARISON: None. FINDINGS: LOWER CHEST: Lung bases are clear. No cardiomegaly or pericardial effusion. LIVER: Homogeneous. No focal mass. GALLBLADDER AND BILIARY TREE: No calcified gallstones. No gallbladder distension or wall edema. No intra- or extrahepatic biliary ductal dilation. PANCREAS: No focal cystic or solid mass. SPLEEN: Normal size without focal cystic or solid mass. ADRENAL GLANDS: No nodules. KIDNEYS AND URETERS: No nephrolithiasis or hydronephrosis. PERITONEUM: Scattered ascites, predominantly in the pelvis. No free air. BOWEL: Normal appendix. No stomach or bowel distension. No focal inflammatory change. LYMPH NODES: No enlarged mesenteric or retroperitoneal lymph nodes. VESSELS: Aorta is non-dilated. URINARY BLADDER: Unremarkable. REPRODUCTIVE ORGANS: No pelvic masses. ABDOMINAL WALL: No discrete abdominal or pelvic wall hernia. BONES: Unremarkable. CT/Abdomen/Pelvis without Cont IMPRESSION: No nephrolithiasis or obstructive uropathy. Scattered ascites, predominantly pelvic. Consider follow-up pelvic ultrasound to evaluate for rupturing cyst. Electronically Signed: Aaron Wade MD at 23:16 EDT ,
--- NOTE | 2023-08-13 22:28 | EX.ED.DYSGE1 ---
HPI History of Present Illness Chief Complaint: Flank Pain Informant: patient and spouse/S.O. Narrative Narrative: Patient is a 33-year-old female with past medical history of IBS and bile acid reflux. She states that she was at home and getting ready for bed when she felt a sharp stabbing pain in the suprapubic region that seem to radiate towards her rectum. She states that the pain was intense for 15 to 20 minutes but since that time has started to resolve. She denies any vaginal bleeding or discharge. She states that she does have a remote history of an ovarian cyst and that she is not on control as there is a chance for . As she does not know what caused the pain she presents for evaluation [facility] Medical History (Updated 08/13/23 @ 23:[address] Demarcus Sánchez, ) 41 weeks gestation of Altered bowel function Anxiety Asthma Back pain Bloating Depression Difficulty swallowing Family history of other congenital malformations, deformations and chromosomal abnormalities Folliculitis Gastric reflux GERD (gastroesophageal reflux disease) History of asthma History of irregular heartbeat History of PCOS Irregular menses PMDD (premenstrual dysphoric disorder) Supervision of other normal Wears glasses Home Medications pantoprazole 40 mg tablet,delayed release 40 mg PO QAM #90 tabs 10/13/22 [Rx Last Taken Unknown] cholestyramine (with sugar) 4 gram oral powder 4 g PO DAILY #348.6 grams 01/22/23 [Rx Last Taken Unknown] doxycycline hyclate 50 mg capsule 50 mg PO BID #20 caps 03/16/23 [Rx Last Taken Unknown] Allergy/AdvReac Type Severity Reaction Status Date / Time amoxicillin Allergy Mild Hives Verified 08/13/23 21:48 erythromycin base Allergy Hives Verified 08/13/23 21:48 Family History (Reviewed 10/13/22 @ 10:35 by Tosin Mckinley RECYCLING OPERATIONS MANAGER, RECYCLING OPERATIONS MANAGER-C) Grandmother Breast cancer melanoma Grandfather Heart disease Father Diabetes Aunt Cancer ovarian Surgical History H/O hernia repair History of breast lump/mass excision Status post vaginal delivery Social History household members: family housing: house number of children: 1 current occupational status: employed Smoking Status: Never smoker second hand exposure: No alcohol intake: never caffeine: Yes what type of physical activity do you participate in: walking frequency: daily seatbelt use: always do you feel safe at home: Yes additional social history: -Jones 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 ROS ED Constitutional Constitutional ED: Denies chills or fever(s) ENT ENT ED: Denies sore throat Cardiovascular Cardiovascular: Denies chest pain Respiratory/Chest Respiratory/Chest: Denies cough or dyspnea Gastrointestinal Gastrointestinal: Reports abdominal pain; Denies diarrhea, nausea or vomiting Genitourinary Genitourinary ED: Denies dysuria, hematuria or urinary frequency Musculoskeletal Musculoskeletal: Reports back pain; Denies myalgias Integumentary Denies rash Neurologic Neurologic: Denies headache(s) Hematologic/Lymphatic Hematologic/Lymphatic: Denies easy bleeding or easy bruising EXAM Physical Exam Const Vital Signs: 08/13/23 21:46 08/13/23 23:31 Temperature 98.6 F 97 F L Temperature Source Temporal Pulse Rate 92 65 Respiratory Rate 18 15 Blood Pressure 144/97 H 132/65 H Blood Pressure Mean 112 87 Pulse Ox 100 98 Oxygen Delivery Method Room Air Positive well nourished and well developed General Appearance ED: well developed; Negative for pallor HEENT HEENT Narrative: Normocephalic atraumatic Eyes PERRL and EOMs intact bilaterally General Eye ED: Negative for scleral icterus Neck supple Resp normal respiratory effort and clear to auscultation bilaterally Cardio regular rate and regular rhythm Rate: other Other Details: Heart is regular rate and rhythm without murmurs rubs or gallops Radial and carotid pulses are equal and symmetric GI non-distended GI Narrative: Abdomen is soft and nondistended with normal active bowel sounds. Patient has pain with palpation in the right lower quadrant and right middle abdomen region. However no voluntary guarding or rigidity. No rebound. No pulsatile mass or fluid wave Negative heel strike psoas and obturator signs Auscultation: normoactive bowel sounds Palpation: soft Back/Spine Back/Spine Narrative: Mild right CVA pain noted Extremity normal to inspection Neuro oriented x3, CN's II-XII intact bilaterally and no sensory deficits noted Sensorium / Orientation: alert Motor Exam: strength 5/5 throughout Psych mental status grossly normal Skin no rashes or lesions noted, no wounds and skin turgor normal General Skin Exam: Negative for jaundice or pallor MDM MDM MDM Narrative Medical decision making narrative: Patient presented to the ER mildly hypertensive otherwise with stable vitals. With sudden onset pain located along the right abdomen and right flank there is concern for kidney stone versus UTI versus pyelonephritis as well as potential complication versus ovarian cyst. Secondary to this basic blood work and a urine sample were obtained as well as noncontrast CT scan. Labs and urine revealed no clinically significant findings. CT scan documented nonspecific free fluid within the pelvis but otherwise no acute changes. This could be related to potential ruptured ovarian cyst especially with her past medical history. At this time with spontaneous resolution of the pain and overall negative workup I do not feel there is need for emergent PURLER consultation. She can follow-up on an outpatient basis and at this time will be discharged home in stable condition History & Record Review Discussion w/independent historian: Patient and Significant other Lab Data Labs: Laboratory Results - last 24 hr 08/13/23 08/13/23 22:12 22:17 WBC 5.9 RBC 4.41 Hgb 13.4 Hct 41.1 MCV 93.2 MCH 30.4 MCHC 32.6 RDW Std Deviation 42.6 RDW Coeff of Maxx 12.3 Plt Count 239 MPV 10.3 Immature Gran % (Auto) 0.200 Neut % (Auto) 59.0 Lymph % (Auto) 29.7 Sac % (Auto) 9.0 Eos % (Auto) 1.4 Baso % (Auto) 0.7 Absolute Neuts (auto) 3.5 Absolute Lymphs (auto) 1.75 Nucleated RBC % 0 Sodium 141 Potassium 4.0 Chloride 110 H Carbon Dioxide 26.0 Anion Gap 5 BUN 17 Creatinine 0.72 Estim Creat Clear Calc 104.04 Est GFR (MDRD) Af Amer 120 Est GFR (MDRD) Non-Af 100 BUN/Creatinine Ratio 23.7 H Glucose 96 Calcium 8.6 Urine Color Yellow Urine Clarity Clear Urine pH 5.0 Ur Specific [place] 1.025 Urine Protein 15 H Urine Glucose (UA) Normal Urine Ketones 5 H Urine Occult Blood Negative Urine Nitrite Negative Urine Bilirubin Negative Urine Urobilinogen 1 H Ur Leukocyte Esterase 25 H Urine RBC 0 SEEN Urine WBC 0-5 SEEN Ur Squamous Epith Cells 0-5 SEEN Urine Bacteria 0 SEEN Urine Mucus 1+ Urine Test Negative Radiography Diagnostic Testing: Clinical Impression(s) from Imaging Studies Abdomen/Pelvis CT 08/13/23 22:07 IMPRESSION: No nephrolithiasis or obstructive uropathy. Scattered ascites, predominantly pelvic. Consider follow-up pelvic ultrasound to evaluate for rupturing cyst. Electronically Signed: Aaron Wade MD at 23:16 EDT Reading Location ID and State: [address] [place] [address] Tel , Service support , Discharge Plan Triage Chief Complaint: Flank Pain ED Provider: Demarcus Sánchez Dx/Rx/DC Orders Clinical Impression: Nonspecific abdominal pain, IBS (irritable bowel syndrome) Instructions: Abdominal Pain, Treating a Ruptured Ovarian Cyst Prescriptions: No Action pantoprazole 40 mg tablet,delayed release (DR/EC) 40 mg PO QAM Qty: 90 3RF doxycycline hyclate 50 mg capsule 50 mg PO BID Qty: 20 0RF cholestyramine (with sugar) 4 gram powder 4 g PO DAILY Qty: 348.6 5RF Rx Instructions: administer w/meal; avoid other meds within 1hr before or 4-6hr after dose Primary Care Provider: Ad Call Referrals: Ad Call DO [Primary Care Provider] - Rubia Mariee MD [Med Staff - Active Staff] - Activity Restrictions/Additional Instructions: Your CT scan showed a small amount of free fluid in the pelvis which could be related to a ruptured ovarian cyst. Follow-up with your PURLER for repeat evaluation and to discuss outpatient ultrasound. Return to the ER should you have any further concerns Disposition Disposition: Home, Self Care Discharge Date/Time: 08/13/23 23:32
[2023-08-13 22:32] LABS: Bacteria 0 SEEN /hpf (None Seen); Red Blood Cells-Urine 0 SEEN /hpf (0-5)
[2023-08-13 22:34] LABS: Absolute Lymphocyte Count 1.75 X10^3/uL (0.83-4.51); Absolute Neutrophil Count 3.5 X10^3/uL (2.0-7.7); Basophil# 0.04 X10^3/uL; Basophil% 0.7 % (0-1); Eosinophil# 0.08 X10^3/uL; Eosinophils% 1.4 % (0-5); Hematocrit 41.1 % (37-47); Hemoglobin 13.4 g/dL (12.0-15.0); Lymphocyte # 1.75 X10^3/ul (0.83-4.51); Lymphocyte % 29.7 % (19-41); Mean Corp Hgb Conc 32.6 g/dL (32-36); Mean Corpuscular Hgb 30.4 pg (27.0-32.0); Mean Corpuscular Volume 93.2 fL (81-99); Mean Platelet Vol. 10.3 fl (6.2-12.0); Monocyte# 0.53 X10^3/uL; NRBC Flagged by Analyzer 0 % (0-5); Neutrophil # 3.49 X10^3/uL (2.7-7.7); Platelet Count 239 K/mm3 (150-450); RBC Distribution Width CV 12.3 % (11.6-14.6); RBC Distribution Width SD 42.6 fl (35.1-43.9); Red Blood Count 4.41 M/mm3 (4.2-5.4); White Blood Count 5.9 K/mm3 (4.4-11.0)
[2023-08-13 22:35] LABS: Color, Urine Yellow (Yellow); Glucose, Dipstick Normal (Normal); Ketone-Dipstick 5 mg/dl (Negative); Leukocyte Esterase-Dipstick 25 /ul (Negative); Nitrite-Dipstick Negative (Negative); Occult Blood-Urine Negative /ul (Negative); Protein-Dipstick 15 mg/dl (Negative); Specific Gravity, Urine 1.025 (1.002-1.030); Urine Bilirubin Dipstick Negative (Negative); Urine Clarity Clear (Clear); Urine Urobilinogen 1 mg/dl (Normal)
[2023-08-13 22:43] LABS: Internal QC Validated? YES +Cl - CLEAR BKGD; Mucous, Urine 1+ /hpf (<or=2+); Pregnancy, Urine Negative Negative; Squamous Epithelial Cells - UA 0-5 SEEN /hpf (5-10); White Blood Cells 0-5 SEEN /hpf (0-5)
[2023-08-13 22:48] LABS: Anion Gap 5 (5-15); BUN 17 mg/dL (7-18); BUN/Creat Ratio 23.7 RATIO (10-20); Calcium,Total 8.6 mg/dL (8.5-10.1); Chloride 110 mmol/L (98-107); Creatinine, Serum 0.72 mg/dL (0.55-1.02); EST Glomerular Filtration Rate 100 mL/min (>60); Est Glom Filt Rate - Afr Amer 120 mL/min (>60); Estimated Creatinine Clearance 104.04 ml/min; Glucose 96 mg/dL (74-106); Sodium Level 141 mmol/L (136-145)
[2023-08-13 23:31] VITALS: BP 132/65; PULSE 65; RESP 15; TEMP 36.1; O2SAT 98
== END 2023-08-13 23:32 | disposition home or self-care (01) ==
PROVIDERS: Emergency Provider Emergency Medicine; PCP Student in an Organized Health Care Education/Training Program; Visit Provider Emergency Medicine
DX: K58.9 Irritable bowel syndrome, unspecified (principal); K21.9 Gastro-esophageal reflux disease without esophagitis; J45.909 Unspecified asthma, uncomplicated; R10.9 Unspecified abdominal pain
CPT/HCPCS: 74176; 80048; 81001; 81025; 85025; 99282; A4216

== ENCOUNTER → 2023-12-31 | Outpatient (CLI) | payer OTHER, SELFPAY ==
[2024-01-05 08:11] LABS: HPV APTIMA, High Risk Negative (Negative)
== END | disposition home or self-care (01) ==
PROVIDERS: PCP Student in an Organized Health Care Education/Training Program; Referring Provider Obstetrics & Gynecology; Visit Provider Obstetrics & Gynecology
DX: Z12.4 Encounter for screening for malignant neoplasm of cervix (principal)
CPT/HCPCS: 87624; 88175; G0145

== ENCOUNTER 2024-06-24 19:49 | Observation (INO) | payer OTHER, SELFPAY ==
[2024-06-24 19:50] VITALS: BP 98/74; PULSE 124; RESP 16; TEMP 36.2; O2SAT 98; BMI 24.4
[2024-06-24 20:36] LABS: Absolute Lymphocyte Count 1.61 X10^3/uL (0.83-4.51); Absolute Neutrophil Count 6.4 X10^3/uL (2.0-7.7); Basophil# 0.05 X10^3/uL; Basophil% 0.6 % (0-1); Eosinophil# 0.06 X10^3/uL; Eosinophils% 0.7 % (0-5); Hematocrit 42.7 % (37-47); Hemoglobin 14.1 g/dL (12.0-15.0); Lymphocyte # 1.61 X10^3/ul (0.83-4.51); Lymphocyte % 18.6 % (19-41); Mean Corpuscular Hgb 30.5 pg (27.0-32.0); Mean Corpuscular Volume 92.4 fL (81-99); Mean Platelet Vol. 10.8 fl (6.2-12.0); Monocyte# 0.54 X10^3/uL; Monocyte% 6.3 % (0-10); NRBC Flagged by Analyzer 0 % (0-5); Neutrophil # 6.36 X10^3/uL (2.7-7.7); Neutrophil % 73.6 % (47-70); Platelet Count 241 K/mm3 (150-450); RBC Distribution Width SD 41.2 fl (35.1-43.9); Red Blood Count 4.62 M/mm3 (4.2-5.4); White Blood Count 8.6 K/mm3 (4.4-11.0)
[2024-06-24 20:43] LABS: Bacteria 0 SEEN /hpf (None Seen)
[2024-06-24 20:45] LABS: Internal QC Validated? YES +Cl - CLEAR BKGD; Pregnancy, Serum, hCG Quali. NEGATIVE Negative
[2024-06-24 20:45] LABS: Color, Urine Yellow (Yellow); Glucose, Dipstick Normal (Normal); Ketone-Dipstick 50 mg/dl (Negative); Leukocyte Esterase-Dipstick 25 /ul (Negative); Nitrite-Dipstick Negative (Negative); Occult Blood-Urine Negative /ul (Negative); Protein-Dipstick 30 mg/dl (Negative); Specific Gravity, Urine 1.015 (1.002-1.030); Urine Bilirubin Dipstick Negative (Negative); Urine Clarity Clear (Clear); Urine Urobilinogen Normal (Normal)
[2024-06-24 20:57] LABS: Mucous, Urine 2+ /hpf (<or=2+); Red Blood Cells-Urine 0 SEEN /hpf (0-5); Squamous Epithelial Cells - UA 10-25 SEEN /hpf (5-10); White Blood Cells 0-5 SEEN /hpf (0-5)
--- NOTE | 2024-06-24 20:58 | CT_ITS ---
PROCEDURE: ABDOMEN/PELVIS W IV CONT ONLY REASON FOR EXAM: Abdominal pain TECHNIQUE: Abdomen and pelvis CT with intravenous contrast. Multiplanar reconstructions performed. COMPARISON: 08/13/2023 FINDINGS: Lower chest: Unremarkable. Liver: A couple of tiny hypodense lesions in the liver appear similar from the previous exam. Biliary/gallbladder: Unremarkable. Pancreas: Unremarkable. Spleen: Unremarkable. Adrenal glands: Unremarkable. Kidneys: Unremarkable. Gastrointestinal/peritoneum: Hemoperitoneum present which is mostly present in the pelvis, but also in the perihepatic and perisplenic region.There are no abnormally dilated loops of bowel.The appendix is unremarkable. Vascular: Unremarkable. Lymph nodes: No enlarged lymph nodes by CT size criteria. Pelvic organs: There is a thick walled cystic lesion anterior to the uterus and superior to the urinary bladder measuring 8.7 x 6.7 x 8.3 cm, with a focus of active contrast extravasation present inferior to the lesion, seen on image 98 of series 2. Venous or arterial active extravasation is possible given the phase of contrast. A 2nd chronic cystic lesion is present in the left adnexal region posteriorly measuring 8.8 x 3.6 cm, which was seen on the previous exam. Bladder: Unremarkable. Bones: Unremarkable. Soft tissues: Unremarkable. CT/Abdomen/Pelvis W IV Cont ONLY IMPRESSION: 1. Large thick walled pelvic cyst in the pelvis anterior to the uterus and supe rior to the urinary bladder with a focus of active intraperitoneal extravasation of intravascular contrast at the inferior aspect of the cyst and a small to moderate volume of hemoperitoneum. This most likely represents a hemorrhagic ovarian cyst. Ovari an torsion is also possible. 2. Chronic large cystic lesion in the left adnexa posteriorly, as seen on the p revious exam. Emergent findings discussed with Dr. Jalloh at 2140 hours on 06/24/2024. Reading Location: [facility]
--- NOTE | 2024-06-24 20:59 | ED.VIS.GI ---
HPI HPI - GI History of Present Illness Chief Complaint: Abd Pain Informant: patient Abdominal Pain/Flank Pain Onset: Today Context: Sudden Onset Timing: Continuous Quality: Sharp Location: RLQ and LLQ Worsened by: - (Coughing, laughing, pressure) Relieved by: - (Ibuprofen slightly helps) Nausea/Vomiting/Emesis GI Symptom: Negative for Nausea or Vomiting Diarrhea/Melena/Hematochezia GI Symptom: Negative for Diarrhea, Melena or Hematochezia Associated Symptoms Associated Symptoms: Positive for Frequency; Negative for Dysuria or Hematuria LMP: Approximately 3 weeks ago Narrative Narrative: Patient presents with abdominal pain that began today. Patient states it started as diffuse lower abdominal/pelvic pain. Patient states it is not worse on the right side. Patient states it is worse with coughing, laughing, and pressure. Patient states she took some ibuprofen which may be helped a little bit. Patient denies any nausea or vomiting. Patient denies any diarrhea, melena, or hematochezia. Patient admits to some urinary frequency but denies any dysuria or hematuria. Patient states her last menstrual period was approximately 3 weeks ago. Patient states her pain is similar to prior ruptured ovarian cyst. [facility] Medical History Illness anxiety disorder Depression Wears glasses Back pain Difficulty swallowing Gastric reflux History of irregular heartbeat Bloating Asthma Altered bowel function 41 weeks gestation of History of PCOS Family history of other congenital malformations, deformations and chromosomal abnormalities History of asthma GERD (gastroesophageal reflux disease) Supervision of other normal Folliculitis Irregular menses PMDD (premenstrual dysphoric disorder) Anxiety Home Medications ?Medication ?Instructions ?Recorded ?Last Taken ?Type lorazepam 1 mg tablet (Ativan) 1 mg PO BID PRN anxiety #30 tabs 11/13/23 Unknown Rx promethazine 12.5 mg tablet 12.5 mg PO TID PRN nausea and 11/13/23 Unknown Rx vomiting #30 tabs digestive enzymes 1 tab PO QAC 01/15/24 Unknown History cholestyramine (with sugar) 4 gram 4 ea PO DAILY #87 packets 02/02/24 Unknown Rx powder for susp in a packet cholecalciferol (vitamin D3) 125 125 mcg PO QDAY 06/20/24 Unknown History mcg (5,000 unit) capsule escitalopram oxalate 5 mg tablet 5 mg PO QDAY #30 tabs 06/20/24 Unknown Rx ondansetron 4 mg disintegrating 4 mg PO Q8H PRN nausea and 06/20/24 Unknown Rx tablet vomiting #30 tabs fluticasone propionate 50 2 spray intranasal Q12H PRN 06/24/24 Unknown History mcg/actuation nasal allergy symptoms spray,suspension oxycodone-acetaminophen 5 mg-325 1 tab PO Q8H PRN pain 3 days #10 06/24/24 Unknown Rx mg tablet (Percocet) tabs Allergy/AdvReac Type Severity Reaction Status Date / Time amoxicillin Allergy Mild Hives Verified 06/24/24 19:50 Penicillins (PCN) Allergy Unknown PT UNSURE Verified 06/24/24 19:50 OF REACTION erythromycin base Allergy Hives Verified 06/24/24 19:50 Family History Grandmother Breast cancer melanoma Grandfather Heart disease Father Diabetes Aunt Cancer ovarian Surgical History Status post vaginal delivery History of breast lump/mass excision H/O hernia repair Social History household members: family housing: house number of children: 2 current occupational status: employed Smoking Status: Never smoker second hand exposure: No alcohol intake: never caffeine: Yes what type of physical activity do you participate in: walking frequency: daily seatbelt use: always do you feel safe at home: Yes additional social history: -Jones 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 [facility] ED Constitutional Constitutional ED: Denies chills or fever(s) Eyes Eyes: Denies blurry vision or change in vision ENT ENT ED: Denies rhinorrhea or sore throat Cardiovascular Cardiovascular: Denies chest pain or palpitations Respiratory/Chest Respiratory/Chest: Denies cough or dyspnea Gastrointestinal Gastrointestinal: Reports abdominal pain; Denies nausea or vomiting Genitourinary Genitourinary ED: Denies dysuria or hematuria Musculoskeletal Musculoskeletal: Reports back pain; Denies neck pain Integumentary Denies abscess or rash Neurologic Neurologic: Reports headache(s); Denies weakness Allergic/Immunologic Allergic/Immunologic ED: Denies mouth swelling or urticaria EXAM Physical Exam Const Vital Signs: 06/24/24 19:50 06/24/24 21:50 06/24/24 23:00 Temperature 97.1 F L Temperature Source Temporal Pulse Rate 124 H 91 79 Respiratory Rate 16 17 18 Blood Pressure 98/74 120/64 104/68 Blood Pressure Mean 82 82 80 Pulse Ox 98 98 100 Oxygen Delivery Method Room Air Room Air Room Air 06/24/24 23:00 Temperature Temperature Source Pulse Rate 79 Respiratory Rate 17 Blood Pressure 104/68 Blood Pressure Mean 80 Pulse Ox 97 Oxygen Delivery Method Room Air Positive well nourished and well developed General Appearance ED: well developed and NAD HEENT Reports moist mucous membranes Neck supple and no JVD Resp normal respiratory effort and clear to auscultation bilaterally Cardio regular rhythm Rate: tachycardic GI non-distended Palpation: soft and tender LLQ, RLQ, RUQ and suprapubic Neuro CN's II-XII intact bilaterally, moves all extremities and no sensory deficits noted Sensorium / Orientation: alert Motor Exam: strength 5/5 throughout Psych mental status grossly normal and thought process normal Mood & Affect: anxious MDM MDM MDM Narrative Medical decision making narrative: Differential diagnosis includes appendicitis, ovarian cyst, ovarian torsion, ectopic , ureteral calculus, urinary tract infection, pyelonephritis, gastroenteritis, diverticulitis, and mesenteric adenitis. CBC will be obtained to assess for leukocytosis and anemia. Comprehensive metabolic profile will be obtained to assess for cardiac function, renal function, and electrolyte abnormality. Serum hCG will be obtained to assess for . Urinalysis will be obtained to assess for urinary tract infection and hematuria. CT scan of the abdomen and pelvis will be obtained to assess for appendicitis, ovarian cyst, and ureteral calculus. Lab Data Attestation: I reviewed the patient's lab results. Lab results narrative: CBC was reviewed and was within normal limits. Comprehensive metabolic profile was reviewed and was within normal limits. Serum hCG was reviewed and was negative. Urinalysis was reviewed. There is no evidence of urinary tract infection or hematuria. Labs: Laboratory Results - last 24 hr 06/24/24 06/24/24 20:23 20:35 WBC 8.6 RBC 4.62 Hgb 14.1 Hct 42.7 MCV 92.4 MCH 30.5 MCHC 33.0 RDW Std Deviation 41.2 RDW Coeff of Maxx 12.0 Plt Count 241 MPV 10.8 Immature Gran % (Auto) 0.200 Neut % (Auto) 73.6 H Lymph % (Auto) 18.6 L Millard % (Auto) 6.3 Eos % (Auto) 0.7 Baso % (Auto) 0.6 Absolute Neuts (auto) 6.4 Absolute Lymphs (auto) 1.61 Nucleated RBC % 0 Sodium 138 Potassium 3.6 Chloride 104 Carbon Dioxide 27.0 Anion Gap 7 BUN 17 Creatinine 0.81 Estim Creat Clear Calc 84.51 Est GFR (MDRD) Af Amer 104 Est GFR (MDRD) Non-Af 86 BUN/Creatinine Ratio 21.0 H Glucose 90 Calcium 8.8 Total Bilirubin 0.80 AST 13 L ALT 12 L Alkaline Phosphatase 40 L Total Protein 7.3 Albumin 4.0 Globulin 3.3 Albumin/Globulin Ratio 1.2 Serum , Qual NEGATIVE Urine Color Yellow Urine Clarity Clear Urine pH 6.0 Ur Specific [place] 1.015 Urine Protein 30 H Urine Glucose (UA) Normal Urine Ketones 50 H Urine Occult Blood Negative Urine Nitrite Negative Urine Bilirubin Negative Urine Urobilinogen Normal Ur Leukocyte Esterase 25 H Urine RBC 0 SEEN Urine WBC 0-5 SEEN Ur Squamous Epith Cells 10-25 SEEN Urine Bacteria 0 SEEN Urine Mucus 2+ Radiography Diagnostic Testing: Clinical Impression(s) from Imaging Studies Abdomen/Pelvis CT 06/24/24 20:58 IMPRESSION: 1. Large thick walled pelvic cyst in the pelvis anterior to the uterus and superior to the urinary bladder with a focus of active intraperitoneal extravasation of intravascular contrast at the inferior aspect of the cyst and a small to moderate volume of hemoperitoneum. This most likely represents a hemorrhagic ovarian cyst. Ovarian torsion is also possible. 2. Chronic large cystic lesion in the left adnexa posteriorly, as seen on the previous exam. Emergent findings discussed with Dr. Jalloh at 2140 hours on 06/24/2024. Reading Location: [facility] Transvaginal US 06/24/24 21:47 IMPRESSION: 1. Abnormally enlarged right ovary with a hemorrhagic cyst present measuring up to 7 cm, O-RADS 2. No evidence of acute ovarian torsion. Ovarian torsion/detorsion should be considered in the appropriate clinical context. Follow-up ultrasound is recommended in 8-12 weeks in the absence of other surgical intervention based on CT findings from the same day. 2. Simple ovarian cyst in the left ovary measuring up to 5.2 cm, O-RADS 2. Follow-up ultrasound recommended in 8-12 weeks, however, given its long-term presence on remote prior imaging longer-term surveillance may be more appropriate. 3. Moderate volume of hemoperitoneum. Reading Location: [facility] CT scan of the abdomen and pelvis was obtained. There is a large thick-walled pelvic cyst anterior to the uterus and superior to the urinary bladder with active intraperitoneal extravasation of the intravascular contrast and a small to moderate amount of hemoperitoneum. This could be ruptured hemorrhagic ovarian cyst although ovarian torsion is also possible. There is a chronic large left adnexal cyst. This was interpreted by the radiologist and was also independently reviewed by myself. Because of the CT findings, pelvic ultrasound was obtained to rule out ovarian torsion. There is an enlarged right ovary with hemorrhagic cyst. There is no evidence of acute ovarian torsion. There is a left ovarian cyst. There is a moderate volume of hemoperitoneum. This was interpreted by the radiologist and was also independently reviewed by myself. Management Discussion w/another healthcare provider: [employer] Sales [employer] (Dr. Mariee) Treatment and Re-Evaluation :: Patient was given IV fluids and Zofran. Patient was feeling anxious. Patient was ordered morphine for pain and anxiety. However, patient declined morphine. Patient was given a dose of Ativan. Patient was feeling better after this. Patient was advised of her findings. Case was discussed with Dr. Mariee from [employer]. She recommended giving the patient a prescription for Percocet. She will follow-up with the patient as an outpatient. Patient and spouse understood and were agreeable with the plan. All questions were answered. Discharge Plan Triage Chief Complaint: Abd Pain ED Provider: Santo Jalloh Dx/Rx/DC Orders Clinical Impression: Ovarian cyst, Pelvic pain Instructions: ED Ovarian Cyst Prescriptions: New oxycodone-acetaminophen [Percocet] 5-325 mg tablet 1 tab PO Q8H PRN (Reason: pain) 3 Days Qty: 10 0RF No Action digestive enzymes Tablet 1 tab PO QAC cholecalciferol (vitamin D3) 125 mcg (5,000 unit) capsule 125 mcg PO QDAY escitalopram oxalate 5 mg tablet 5 mg PO QDAY Qty: 30 2RF ondansetron 4 mg tablet,disintegrating 4 mg PO Q8H PRN (Reason: nausea and vomiting) Qty: 30 0RF fluticasone propionate 50 mcg/actuation spray,suspension 2 spray INTRANASAL Q12H PRN (Reason: allergy symptoms) Patient Comments: [NO ORIGINAL SIG] promethazine 12.5 mg tablet 12.5 mg PO TID PRN (Reason: nausea and vomiting) Qty: 30 0RF Rx Instructions: 3 doses during day; last dose no later than 4 hr before bedtime lorazepam [Ativan] 1 mg tablet 1 mg PO BID PRN (Reason: anxiety) Qty: 30 0RF cholestyramine (with sugar) 4 gram powder in packet 4 ea PO DAILY Qty: 87 5RF Primary Care Provider: Ad Call Referrals: Ad Call DO [Primary Care Provider] - Rubia Mariee MD [Med Staff - Active Staff] - Print Language: [place] Disposition Disposition: Home, Self Care
[2024-06-24 21:01] LABS: ALB/GLOB Ratio 1.2 RATIO (0.9-2.4); AST(SGOT) 13 U/L (15-37); Alanine Aminotransfer ALT/SGPT 12 U/L (13-56); Alkaline Phosphatase 40 U/L (45-117); Anion Gap 7 (5-15); BUN 17 mg/dL (7-18); Calcium,Total 8.8 mg/dL (8.5-10.1); Chloride 104 mmol/L (98-107); Creatinine, Serum 0.81 mg/dL (0.55-1.02); EST Glomerular Filtration Rate 86 mL/min (>60); Est Glom Filt Rate - Afr Amer 104 mL/min (>60); Estimated Creatinine Clearance 84.51 ml/min; Globulin 3.3 g/dL (2.2-4.2); Glucose 90 mg/dL (74-106); Potassium 3.6 mmol/L (3.5-5.1); Protein, Total 7.3 g/dL (6.4-8.2); Sodium Level 138 mmol/L (136-145)
[2024-06-24] MEDS: 0.9% Normal Saline (1000mL) 1,000 ML 1000 ML IV (21:33)
[2024-06-24] MEDS: Ondansetron 4 MG/2 ML Vial IV (21:33)
--- NOTE | 2024-06-24 21:47 | US_ITS ---
PROCEDURE: TRANSVAGINAL NON- REASON FOR EXAM: Pelvic pain TECHNIQUE: Transvaginal pelvic ultrasound COMPARISON: 06/24/2024; 04/18/2022 FINDINGS: Measurements: Uterus: 8.4 x 6.6 x 5.4 cm Endometrial Thickness: 9 mm Right Ovary: 10.1 x 9.8 x 7.0 cm Left Ovary: 7.4 x 5.9 x 4.2 cm Uterus: Anteverted. Normal contour and myometrial echotexture. Endometrium: Normal echotexture. Right ovary: The right ovary is abnormally enlarged with a thick walled hemorrhagic cyst present measuring 7.0 x 6.2 x 5.7 cm. There is normal spectral Doppler arterial and venous waveforms in the ovarian parenchyma. A simple appearing right ovarian cyst is present measuring 2.4 x 1.4 x 2.2 cm. Left ovary: The left ovary is enlarged, mostly due to the presence of 2 simple appearing ovarian cysts. The largest cyst measures 5.2 x 3.7 x 3.5 cm. The 2nd cyst measures 2.6 x 2.0 x 1.9 cm. There is normal spectral Doppler arterial and venous waveforms in the ovarian parenchyma. A moderate volume of complex pelvic free fluid is present, corresponding with hemoperitoneum seen on the prior CT. US/Transvaginal Non- IMPRESSION: 1. Abnormally enlarged right ovary with a hemorrhagic cyst present measuring up to 7 cm, O-RADS 2. No evidence of acute ovarian torsion. Ovarian torsion/detorsion should be considered in the appropriate cli nical context. Follow-up ultrasound is recommended in 8-12 weeks in the absence of other surgical intervention based o n CT findings from the same day. 2. Simple ovarian cyst in the left ovary measuring up to 5.2 cm, O-RADS 2. Fol low-up ultrasound recommended in 8-12 weeks, however, given its long-term presence on remote prior imaging longer-term surve illance may be more appropriate. 3. Moderate volume of hemoperitoneum. Reading Location: [facility]
[2024-06-24 21:50] VITALS: BP 120/64; PULSE 91; RESP 17; O2SAT 98
[2024-06-24 23:00] VITALS: BP 104/68; PULSE 79; RESP 17; RESP 18; O2SAT 100; O2SAT 97
[2024-06-24] MEDS: Lorazepam 2 MG/ML WCH Syringe 0.5 MG IV (23:10)
[2024-06-25] VITALS (14 sets, daily range): BP systolic 94–116; BP diastolic 57–74; PULSE 83–120; RESP 14–18; TEMP 36.3–37.2; O2SAT 97–100; BMI 22.9
--- NOTE | 2024-06-25 00:25 | ED.RN ---
Pt ambulated out of department at discharge. Pt then comes to triage doors and states when she got in the car she became light headed, dizzy, seeing black spots with blurred vision. This nurse to car, pt is talking stating she doesn't feel well. Pt brought back in to ER and had syncopal episode. Pt assisted to bed x2 staff assist, Dr. Sánchez to bedside to assess pt. Pt regains consciousness. IV started with labwork obtained. Fluids started. Dr Mariee called.
--- NOTE | 2024-06-25 00:35 | EX.ED.DYSGE1 ---
HPI History of Present Illness Chief Complaint: Abd Pain Informant: patient and spouse/S.O. Narrative Narrative: The patient was just seen in the ER secondary to lower abdominal/pelvic pain and found to have a large 7 cm hemorrhagic ovarian cyst with moderate volume hemoperitoneum. Following this finding the case was discussed with [facility]ELOPER on-call and the decision was made to discharge the patient. She walked out to her car where she reportedly felt lightheaded and dizzy and therefore she decided to come back in for repeat evaluation. When she reached the door she was placed in a wheelchair and just prior to reaching her room for repeat evaluation she experienced a syncopal event. [facility] Medical History Illness anxiety disorder Depression Wears glasses Back pain Difficulty swallowing Gastric reflux History of irregular heartbeat Bloating Asthma Altered bowel function 41 weeks gestation of History of PCOS Family history of other congenital malformations, deformations and chromosomal abnormalities History of asthma GERD (gastroesophageal reflux disease) Supervision of other normal Folliculitis Irregular menses PMDD (premenstrual dysphoric disorder) Anxiety Home Medications ?Medication ?Instructions ?Recorded ?Last Taken ?Type lorazepam 1 mg tablet (Ativan) 1 mg PO BID PRN anxiety #30 tabs 11/13/23 Unknown Rx promethazine 12.5 mg tablet 12.5 mg PO TID PRN nausea and 11/13/23 Unknown Rx vomiting #30 tabs digestive enzymes 1 tab PO QAC 01/15/24 Unknown History cholestyramine (with sugar) 4 gram 4 ea PO DAILY #87 packets 02/02/24 Unknown Rx powder for susp in a packet cholecalciferol (vitamin D3) 125 125 mcg PO QDAY 06/20/24 Unknown History mcg (5,000 unit) capsule escitalopram oxalate 5 mg tablet 5 mg PO QDAY #30 tabs 06/20/24 Unknown Rx ondansetron 4 mg disintegrating 4 mg PO Q8H PRN nausea and 06/20/24 Unknown Rx tablet vomiting #30 tabs fluticasone propionate 50 2 spray intranasal Q12H PRN 06/24/24 Unknown History mcg/actuation nasal allergy symptoms spray,suspension oxycodone-acetaminophen 5 mg-325 1 tab PO Q8H PRN pain 3 days #10 06/24/24 Unknown Rx mg tablet (Percocet) tabs Allergy/AdvReac Type Severity Reaction Status Date / Time amoxicillin Allergy Mild Hives Verified 06/24/24 19:50 Penicillins (PCN) Allergy Unknown PT UNSURE Verified 06/24/24 19:50 OF REACTION erythromycin base Allergy Hives Verified 06/24/24 19:50 Family History Grandmother Breast cancer melanoma Grandfather Heart disease Father Diabetes Aunt Cancer ovarian Surgical History Status post vaginal delivery History of breast lump/mass excision H/O hernia repair Social History household members: family housing: house number of children: 2 current occupational status: employed Smoking Status: Never smoker second hand exposure: No alcohol intake: never caffeine: Yes what type of physical activity do you participate in: walking frequency: daily seatbelt use: always do you feel safe at home: Yes additional social history: -Jones 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 ED Constitutional Constitutional ED: Denies chills or fever(s) ENT ENT ED: Denies sore throat Cardiovascular Cardiovascular: Reports racing heartbeat and other Details: Positive syncope ; Denies chest pain Respiratory/Chest Respiratory/Chest: Denies cough or dyspnea Gastrointestinal Gastrointestinal: Reports abdominal pain; Denies diarrhea, nausea or vomiting Genitourinary Genitourinary ED: Denies dysuria Musculoskeletal Musculoskeletal: Denies myalgias Integumentary Denies rash Neurologic Neurologic: Denies headache(s) Hematologic/Lymphatic Hematologic/Lymphatic: Denies easy bleeding or easy bruising EXAM Physical Exam Const Vital Signs: 06/24/24 19:50 06/24/24 21:50 06/24/24 23:00 Temperature 97.1 F L Temperature Source Temporal Pulse Rate 124 H 91 79 Respiratory Rate 16 17 18 Blood Pressure 98/74 120/64 104/68 Blood Pressure Mean 82 82 80 Pulse Ox 98 98 100 Oxygen Delivery Method Room Air Room Air Room Air 06/24/24 23:00 06/25/24 00:05 06/25/24 00:26 Temperature 98.3 F Temperature Source Pulse Rate 79 95 83 Respiratory Rate 17 16 17 Blood Pressure 104/68 98/74 104/62 Blood Pressure Mean 80 82 76 Pulse Ox 97 98 97 Oxygen Delivery Method Room Air Room Air Positive well nourished and well developed General Appearance ED: well developed and pallor HEENT HEENT Narrative: Normocephalic atraumatic Eyes PERRL and EOMs intact bilaterally Eyes Narrative: Positive subconjunctival pallor noted General Eye ED: Yes pale conjunctiva; Negative for scleral icterus Neck supple Neck Narrative: No nuchal rigidity or meningeal signs Resp normal respiratory effort and clear to auscultation bilaterally Cardio regular rhythm Rate: tachycardic and other Other Details: Tachycardic rate with regular rhythm Radial and carotid pulses are equal and symmetric No murmurs rubs or gallops GI non-distended and no masses GI Narrative: Soft and nondistended with normal active bowel sounds. There is diffuse pain on palpation in the lower abdomen without voluntary guarding or rigidity or pulsatile mass. Auscultation: normoactive bowel sounds Palpation: soft Extremity normal to inspection Extremity Narrative: No asymmetric edema no pitting edema negative Homans' sign bilaterally Neuro oriented x3, CN's II-XII intact bilaterally and no sensory deficits noted Sensorium / Orientation: alert Motor Exam: strength 5/5 throughout Psych mental status grossly normal Skin no rashes or lesions noted General Skin Exam: pallor; Negative for jaundice MDM MDM MDM Narrative Medical decision making narrative: Patient presented to the ER just shortly after discharge with sensation of lightheadedness/dizziness and then experienced a syncopal event. She has a known 7 cm hemorrhagic ovarian cyst with moderate volume hemoperitoneum. History and exam is most consistent with orthostasis. However as there is potential for acute blood loss anemia repeat labs were obtained. Also based on her large cyst the patient could have had a syncopal event if torsion occurred and then detorsed. Therefore [facility] DEVELOPER was contacted once again. They agree about rechecking laboratory values for potential acute blood loss but in order to ensure that this event was not due to a potential torsion/detorsion they do recommend admission to their service for continued observation. Plan of care was discussed with patient and family and they are agreeable to it and therefore should be admitted to the [facility] [employer] service for continued observation of her ovarian cyst with syncopal event. As her hemoglobin is only decreased from 14-12 there is no need for emergent blood transfusion History & Record Review Discussion w/independent historian: Patient and Significant other Lab Data Attestation: I reviewed the patient's lab results. Labs: Laboratory Results - last 24 hr 06/24/24 06/24/24 06/25/24 20:23 20:35 00:25 WBC 8.6 13.5 H RBC 4.62 3.78 L Hgb 14.1 11.8 L Hct 42.7 34.8 L MCV 92.4 92.1 MCH 30.5 31.2 MCHC 33.0 33.9 RDW Std Deviation 41.2 40.9 RDW Coeff of Maxx 12.0 12.3 Plt Count 241 305 MPV 10.8 10.7 Immature Gran % (Auto) 0.200 0.400 Neut % (Auto) 73.6 H 76.7 H Lymph % (Auto) 18.6 L 16.8 L Barren % (Auto) 6.3 5.6 Eos % (Auto) 0.7 0.2 Baso % (Auto) 0.6 0.3 Absolute Neuts (auto) 6.4 10.4 H Absolute Lymphs (auto) 1.61 2.27 Nucleated RBC % 0 0 PT INR APTT Sodium 138 Potassium 3.6 Chloride 104 Carbon Dioxide 27.0 Anion Gap 7 BUN 17 Creatinine 0.81 Estim Creat Clear Calc 84.51 Est GFR (MDRD) Af Amer 104 Est GFR (MDRD) Non-Af 86 BUN/Creatinine Ratio 21.0 H Glucose 90 Calcium 8.8 Total Bilirubin 0.80 AST 13 L ALT 12 L Alkaline Phosphatase 40 L Total Protein 7.3 Albumin 4.0 Globulin 3.3 Albumin/Globulin Ratio 1.2 Serum , Qual NEGATIVE Urine Color Yellow Urine Clarity Clear Urine pH 6.0 Ur Specific [place] 1.015 Urine Protein 30 H Urine Glucose (UA) Normal Urine Ketones 50 H Urine Occult Blood Negative Urine Nitrite Negative Urine Bilirubin Negative Urine Urobilinogen Normal Ur Leukocyte Esterase 25 H Urine RBC 0 SEEN Urine WBC 0-5 SEEN Ur Squamous Epith Cells 10-25 SEEN Urine Bacteria 0 SEEN Urine Mucus 2+ 06/25/24 00:30 WBC RBC Hgb Hct MCV MCH MCHC RDW Std Deviation RDW Coeff of Maxx Plt Count MPV Immature Gran % (Auto) Neut % (Auto) Lymph % (Auto) Barren % (Auto) Eos % (Auto) Baso % (Auto) Absolute Neuts (auto) Absolute Lymphs (auto) Nucleated RBC % PT 15.5 H INR 1.2 APTT 22.7 L Sodium Potassium Chloride Carbon Dioxide Anion Gap BUN Creatinine Estim Creat Clear Calc Est GFR (MDRD) Af Amer Est GFR (MDRD) Non-Af BUN/Creatinine Ratio Glucose Calcium Total Bilirubin AST ALT Alkaline Phosphatase Total Protein Albumin Globulin Albumin/Globulin Ratio Serum , Qual Urine Color Urine Clarity Urine pH Ur Specific [place] Urine Protein Urine Glucose (UA) Urine Ketones Urine Occult Blood Urine Nitrite Urine Bilirubin Urine Urobilinogen Ur Leukocyte Esterase Urine RBC Urine WBC Ur Squamous Epith Cells Urine Bacteria Urine Mucus Radiography Diagnostic Testing: Clinical Impression(s) from Imaging Studies Abdomen/Pelvis CT 06/24/24 20:58 IMPRESSION: 1. Large thick walled pelvic cyst in the pelvis anterior to the uterus and superior to the urinary bladder with a focus of active intraperitoneal extravasation of intravascular contrast at the inferior aspect of the cyst and a small to moderate volume of hemoperitoneum. This most likely represents a hemorrhagic ovarian cyst. Ovarian torsion is also possible. 2. Chronic large cystic lesion in the left adnexa posteriorly, as seen on the previous exam. Emergent findings discussed with Dr. Jalloh at 2140 hours on 06/24/2024. Reading Location: [facility] Transvaginal US 06/24/24 21:47 IMPRESSION: 1. Abnormally enlarged right ovary with a hemorrhagic cyst present measuring up to 7 cm, O-RADS 2. No evidence of acute ovarian torsion. Ovarian torsion/detorsion should be considered in the appropriate clinical context. Follow-up ultrasound is recommended in 8-12 weeks in the absence of other surgical intervention based on CT findings from the same day. 2. Simple ovarian cyst in the left ovary measuring up to 5.2 cm, O-RADS 2. Follow-up ultrasound recommended in 8-12 weeks, however, given its long-term presence on remote prior imaging longer-term surveillance may be more appropriate. 3. Moderate volume of hemoperitoneum. Reading Location: [facility] Management Discussion w/another healthcare provider: Outside Cutter Discharge Plan Dx/Rx/DC Orders Clinical Impression: Ovarian cyst, Pelvic pain, Hemoperitoneum, Syncope Disposition Disposition: Acute Care Hospital [facility]
--- NOTE | 2024-06-25 00:46 | PCM.HP.OB ---
HPI - General General Date of Admission: 06/25/24 HPI Narrative DANYELL COCHRAN, is a 34 F who presents with acute lower pelvic pain this evening, upon evaluation found to have bilateral ovarian cysts, right sided hemorrhagic 7 cm with nl doppler on ultrasound, hemorrhagic ovarian cyst appearance, hemoperitoneum seen. she was initially evaluate din the ER and discharged but fetl dizzy getting into her car and then came back into the ER and had a syncopal episode. Upon reevaluation initial vital signs showed some hypotension which is resolving, Hg has decreased some but platelets are stable, patient did receive some IVFs. she didn't take any pain medication previously but is open to it now. she has some right shoulder pain and feels bloated. [facility] Medical History Illness anxiety disorder Depression Wears glasses Back pain Difficulty swallowing Gastric reflux History of irregular heartbeat Bloating Asthma Altered bowel function 41 weeks gestation of History of PCOS Family history of other congenital malformations, deformations and chromosomal abnormalities History of asthma GERD (gastroesophageal reflux disease) Supervision of other normal Folliculitis Irregular menses PMDD (premenstrual dysphoric disorder) Anxiety Home Medications ?Medication ?Instructions ?Recorded ?Last Taken ?Type lorazepam 1 mg tablet (Ativan) 1 mg PO BID PRN anxiety #30 tabs 11/13/23 Unknown Rx promethazine 12.5 mg tablet 12.5 mg PO TID PRN nausea and 11/13/23 Unknown Rx vomiting #30 tabs digestive enzymes 1 tab PO QAC 01/15/24 Unknown History cholestyramine (with sugar) 4 gram 4 ea PO DAILY #87 packets 02/02/24 Unknown Rx powder for susp in a packet cholecalciferol (vitamin D3) 125 125 mcg PO QDAY 06/20/24 Unknown History mcg (5,000 unit) capsule escitalopram oxalate 5 mg tablet 5 mg PO QDAY #30 tabs 06/20/24 Unknown Rx ondansetron 4 mg disintegrating 4 mg PO Q8H PRN nausea and 06/20/24 Unknown Rx tablet vomiting #30 tabs fluticasone propionate 50 2 spray intranasal Q12H PRN 06/24/24 Unknown History mcg/actuation nasal allergy symptoms spray,suspension oxycodone-acetaminophen 5 mg-325 1 tab PO Q8H PRN pain 3 days #10 06/24/24 Unknown Rx mg tablet (Percocet) tabs Allergy/AdvReac Type Severity Reaction Status Date / Time amoxicillin Allergy Mild Hives Verified 06/24/24 19:50 Penicillins (PCN) Allergy Unknown PT UNSURE Verified 06/24/24 19:50 OF REACTION erythromycin base Allergy Hives Verified 06/24/24 19:50 Family History Grandmother Breast cancer melanoma Grandfather Heart disease Father Diabetes Aunt Cancer ovarian Surgical History Status post vaginal delivery History of breast lump/mass excision H/O hernia repair Social History household members: family housing: house number of children: 2 current occupational status: employed Smoking Status: Never smoker second hand exposure: No alcohol intake: never caffeine: Yes what type of physical activity do you participate in: walking frequency: daily seatbelt use: always do you feel safe at home: Yes additional social history: -Jones 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 Date Name GA/Weeks Outcome Route Bth Weight Gen [facility] Artur 40 live - full term 7lbs 8oz Male 15 hours epidural [facility] DURAN Goldman 10/09/21 Vito 40 live - full term Male epidural [facility] Amy Chavis Delivery Date: 05/05/17 Last Updated by: Day Cisneros 2nd degree laceration Delivery Date: 10/09/21 Last Updated by: Edelmira Gupta 40w6d, male, spontaneous vaginal delivery, 1st degree laceration ROS Constitutional Constitutional: Reports systems reviewed and no addt'l complaints, except as documented; Denies as per HPI, change in weight, fatigue, fever(s), malaise, weakness or other Eyes Eyes: Reports systems reviewed and no addt'l complaints, except as documented; Denies as per HPI, change in vision or other ENT HEENT: Reports systems reviewed and no addt'l complaints, except as documented Respiratory/Chest Respiratory/Chest: Reports systems reviewed and no addt'l complaints, except as documented Gastrointestinal Gastrointestinal: Reports systems reviewed and no addt'l complaints, except as documented and as per HPI Genitourinary Genitourinary: Reports as per HPI Musculoskeletal Musculoskeletal: Reports systems reviewed and no addt'l complaints, except as documented Neurologic Neurologic: Reports systems reviewed and no addt'l complaints, except as documented Psychiatric Psychiatric: Reports systems reviewed and no addt'l complaints, except as documented Endocrine Endocrinology: Reports systems reviewed and no addt'l complaints, except as documented Hematologic/Lymphatic Hematologic/Lymphatic: Reports systems reviewed and no addt'l complaints, except as documented Vital Signs Vital Signs Vital Signs: 06/24/24 19:50 06/24/24 21:50 06/24/24 23:00 Temperature 97.1 F L Temperature Source Temporal Pulse Rate 124 H 91 79 Respiratory Rate 16 17 18 Blood Pressure 98/74 120/64 104/68 Blood Pressure Mean 82 82 80 Pulse Ox 98 98 100 Oxygen Delivery Method Room Air Room Air Room Air 06/24/24 23:00 06/25/24 00:05 Temperature 98.3 F Temperature Source Pulse Rate 79 95 Respiratory Rate 17 16 Blood Pressure 104/68 98/74 Blood Pressure Mean 80 82 Pulse Ox 97 98 Oxygen Delivery Method Room Air Weight Weight: 142 lb 3.17 oz Body Mass Index (BMI) 24.4 Physical Exam Const alert and oriented x3 General Appearance: Negative for comfortable HEENT normocephalic Head and Scalp: atraumatic Eyes EOMs intact bilaterally and conjunctivae normal Neck full ROM, no lymphadenopathy, supple and thyroid normal General: trachea midline Lymph Lymphatic: no lymphadenopathy noted Resp normal respiratory effort, no retractions and no use of accessory muscles Cardio regular rhythm GI soft to palpation, non-distended and no masses GI Narrative: tender on palpation general, no rebound Inspection: Negative for abdominal distention Extremity normal to inspection Skin no rashes or lesions noted Neuro moves all extremities Psych mental status grossly normal Labs Labs Labs: Blood Type B POSITIVE Antibody Screen NEGATIVE Hct 42.7 % (37-47) Hgb 14.1 g/dL (12.0-15.0) Pap Smear Negative Obstetrics Ultrasound Syphilis Total Ab Non-reactive Rubella IgG Antibody Reactive (Nonreactive) Hep Bs Antigen Non-Reactive (Nonreactive) Hepatitis C Antibody Non-Reactive (Nonreactive) Chlamydia DNA ([place]) Negative (Negative) N.gonorrhoeae DNA ([place]) Negative (Negative) HIV 1&2 Antibody Non-Reactive (Nonreactive) Glucose 1 Hr 50 gm 89 mg/dL (70-140) Group B Strep DNA POSITIVE (Negative) H Rhogam given: No Miscellaneous Test Assessment & Plan (1) Hemoperitoneum: (2) Ovarian cyst: COMMENT: bilateral, right larger than left, hemorrhagic in appearance. suspect ovarian cyst rupture nl blood flow, will admit for STO to determine if stable to monitor or if may need surgical evaluation. reviewed precautions and indications with patient. serial labs ordered, repeat pelvic US PRN (3) Syncope: PLAN: Plan see a/p comments admit NPO for now serial labs and pain control. Charges/Coding Visit Charges Inpatient E&M: 94361 Init Hosp L3
[2024-06-25 00:52] LABS: International Normalized Ratio 1.2; Prothrombin Time (Protime)PT. 15.5 SECONDS (11.7-14.9)
[2024-06-25 00:57] LABS: Partial Thromboplast Time 22.7 Seconds (24.1-36.2)
[2024-06-25 00:59] LABS: Absolute Lymphocyte Count 2.27 X10^3/uL (0.83-4.51); Absolute Neutrophil Count 10.4 X10^3/uL (2.0-7.7); Basophil# 0.04 X10^3/uL; Basophil% 0.3 % (0-1); Eosinophil# 0.03 X10^3/uL; Eosinophils% 0.2 % (0-5); Hematocrit 34.8 % (37-47); Hemoglobin 11.8 g/dL (12.0-15.0); Lymphocyte # 2.27 X10^3/ul (0.83-4.51); Lymphocyte % 16.8 % (19-41); Mean Corp Hgb Conc 33.9 g/dL (32-36); Mean Corpuscular Hgb 31.2 pg (27.0-32.0); Mean Corpuscular Volume 92.1 fL (81-99); Mean Platelet Vol. 10.7 fl (6.2-12.0); Monocyte# 0.75 X10^3/uL; Monocyte% 5.6 % (0-10); NRBC Flagged by Analyzer 0 % (0-5); Neutrophil # 10.37 X10^3/uL (2.7-7.7); Neutrophil % 76.7 % (47-70); Platelet Count 305 K/mm3 (150-450); RBC Distribution Width CV 12.3 % (11.6-14.6); RBC Distribution Width SD 40.9 fl (35.1-43.9); Red Blood Count 3.78 M/mm3 (4.2-5.4); White Blood Count 13.5 K/mm3 (4.4-11.0)
[2024-06-25] MEDS: 0.9% Normal Saline (1000mL) 1,000 ML 999 ML IV (01:15)
[2024-06-25] MEDS: Ondansetron 4 MG/2 ML Vial IV (01:23)
[2024-06-25] MEDS: Morphine 4 MG/ML Syringe IV (01:24)
[2024-06-25] MEDS: Lactated Ringers 1,000 ML 125 ML IV (02:28)
[2024-06-25 06:12] LABS: Absolute Lymphocyte Count 0.89 X10^3/uL (0.83-4.51); Absolute Neutrophil Count 4.9 X10^3/uL (2.0-7.7); Basophil# 0.02 X10^3/uL; Basophil% 0.3 % (0-1); Eosinophil# 0.01 X10^3/uL; Eosinophils% 0.2 % (0-5); Hematocrit 29.9 % (37-47); Hemoglobin 9.9 g/dL (12.0-15.0); Lymphocyte # 0.89 X10^3/ul (0.83-4.51); Lymphocyte % 14.3 % (19-41); Mean Corp Hgb Conc 33.1 g/dL (32-36); Mean Corpuscular Hgb 30.8 pg (27.0-32.0); Mean Corpuscular Volume 93.1 fL (81-99); Mean Platelet Vol. 10.5 fl (6.2-12.0); Monocyte# 0.42 X10^3/uL; Monocyte% 6.8 % (0-10); NRBC Flagged by Analyzer 0 % (0-5); Neutrophil # 4.86 X10^3/uL (2.7-7.7); Neutrophil % 78.1 % (47-70); Platelet Count 213 K/mm3 (150-450); RBC Distribution Width CV 12.2 % (11.6-14.6); RBC Distribution Width SD 41.1 fl (35.1-43.9); Red Blood Count 3.21 M/mm3 (4.2-5.4); White Blood Count 6.2 K/mm3 (4.4-11.0)
[2024-06-25] MEDS: Lactated Ringers 1,000 ML 999 ML IV (07:41)
--- NOTE | 2024-06-25 08:15 | PCM.PRE.AN2 ---
ASA Classification* ASA Classification ASA Classification: 2 and E Assessment & Plan Anesthesia* Anesthesia Assessment Anesthesia Assessment: Discussed sedation and/or anesthesia options, risks, benefits, and alternatives with patient/parents/legal guardian/POA. Questions invited. The patient/parents/legal guardian/POA seems to understand and agrees to proceed with anesthesia plan. Reviewed the physical assessment, medical history, allergy history and patient home medications list prior to surgery/procedure/anesthetic and documented any changes. Performed airway and anesthesia risk assessments. Anesthesia Type Anesthesia Type: General Anesthesia Focused Assessment* Temperature: 99.0 F Pulse Rate: 98 Blood Pressure: 111/70 Respiratory Rate: 18 Pulse Ox: 100 Airway Assessment Mouth opens: >3 cm Mallampati Score: II Focused Labs Anesthesia Preop lab: CBC WBC 6.2 K/mm3 (4.4-11.0) 06/25/24 05:50 06/25/24 RBC 3.21 M/mm3 (4.2-5.4) L 06/25/24 05:50 06/25/24 Hgb 9.9 g/dL (12.0-15.0) L 06/25/24 05:50 06/25/24 Hct 29.9 % (37-47) L 06/25/24 05:50 06/25/24 Plt Count 213 K/mm3 (150-450) 06/25/24 05:50 06/25/24 CHEMISTRY Potassium 3.6 mmol/L (3.5-5.1) 06/24/24 20:35 06/24/24 Sodium 138 mmol/L (136-145) 06/24/24 20:35 06/24/24 BUN 17 mg/dL (7-18) 06/24/24 20:35 06/24/24 Creatinine 0.81 mg/dL (0.55-1.02) 06/24/24 20:35 06/24/24 Glucose 90 mg/dL (74-106) 06/24/24 20:35 06/24/24 COAG PT 15.5 SECONDS (11.7-14.9) H 06/25/24 00:30 06/25/24 Urine Test Negative Negative 08/13/23 22:12 04/04/24 Pre-Assessment Diagnosis/Proposed Procedure Planned Operative Procedure(s): exploratory laparoscopy for hemmorhagic ovarian cyst Anesthesia History 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 When Was Last Pacemaker Check QUESTION #4 FULL TEXT: You/Your Family Experience fever (hyperthermia) with Anesthesia Last Oral Intake Last Oral intake: Last Oral Intake NPO since Meds taken in AM with sips of water? Meds patient instructed to take am of surgery PONV PONV - corporate responsibility officer: PONV - corporate responsibility officer Female HX of Motion Sickness HX of N/V After Surgery Non-Smoker Duration of Surgery greater than 60 minutes Number of Risk Factors PONV Score Height & Weight Height & Weight: Anesthesia: Height & Weight Height 5 ft 6 in 06/25/24 01:47 Weight: 64.501 kg 06/25/24 01:47 Body Mass Index (BMI) 22.9 06/25/24 01:47 Respiratory Assessment Respiratory Assessment - corporate responsibility officer: Respiratory Tract Infection Hx - corporate responsibility officer Hx Respiratory Tract Infection No 06/09/22 09:56 STOP Sleep Apnea STOP Sleep Apnea - corporate responsibility officer: STOP Sleep Apnea - corporate responsibility officer Hx Hypertension No 06/25/24 01:47 Hx Sleep Apnea No 06/25/24 01:47 CPAP BIPAP Do you snore loudly (louder No 06/25/24 01:47 than talking or can be heard Do you often feel tired/ Yes 06/25/24 01:47 fatigued/ sleepy during daytime? Has anyone observed you stop No 06/25/24 01:47 breathing during sleep? STOP Results Negative 06/25/24 01:47 QUESTION #5 FULL TEXT : Do you snore loudly (louder than talking or can be heard through closed doors)? 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 Specify any problems Hx of Preganancy in last 3 No 06/25/24 01:47 Months Nurse Filling Out Transfusion [id number] 06/25/24 01:47 & Questions: Date: 06/25/24 06/25/24 01:47 Time: 01:50 06/25/24 01:47 Patient unable to answer at this time (ie. confused, unrespo /Reproduction History /Reproductive History - corporate responsibility officer: /Reproductive Hx- corporate responsibility officer Hx Now No 06/25/24 01:47 Gestational Age (in weeks): EDC: Hx Hx Para Hx Section SAB No 06/25/24 01:47 Active Medications Active Medications: Current Medications Generic Name Dose Route Start Last Admin Trade Name Freq PRN Reason Stop Dose Admin Acetaminophen 650 mg 06/25/24 02:07 Acetaminophen 325 Mg Tablet PO Q6H PRN PRN Pain 1-10 Or Fever>100.7 Hydrocodone Bitart/Acetaminophen 1 - 2 tablet 06/25/24 08:48 Hydrocodone Bitartrate/Apap 5/325 Tablet PO Q6H PRN PRN Pain Score 1-5 Escitalopram Oxalate 5 mg 06/25/24 10:00 06/25/24 08:24 Escitalopram Oxalate 10 Mg Tablet PO Not Given DAILY SHARI Hydromorphone HCl 1 mg 06/25/24 02:07 Hydromorphone 1 Mg/Ml Syringe IV Q2H PRN PRN Pain Score 6-10 Sodium Chloride 100 mls @ 15 mls/hr 06/25/24 01:53 IV .Q6H40M PRN Saline Flush Sodium Chloride 100 mls @ 15 mls/hr 06/25/24 01:53 IV .Q6H40M PRN Additional IVPB Infusion Lactated Ringer's 1,000 mls @ 125 mls/hr 06/25/24 02:07 06/25/24 02:28 IV 06/27/24 02:06 125 mls/hr .Q8H SHARI Administration Protocol Lorazepam 1 mg 06/25/24 02:07 Lorazepam 1 Mg Tablet PO BID PRN PRN anxiety Ondansetron HCl 4 mg 06/25/24 02:07 Ondansetron 4 Mg/2 Ml Vial IV Q8H PRN PRN NAUSEA/VOMITING Ondansetron HCl 4 mg 06/25/24 08:48 Ondansetron 4 Mg/2 Ml Vial IM X1 PRN NAUSEA Oxycodone HCl 5 mg 06/25/24 02:07 Oxycodone 5 Mg Tablet PO Q4H PRN PRN Pain Score 1-10 Sodium Chloride 10 - 40 ml 06/25/24 01:53 0.9% Saline Lock 10 Ml Syringe IV UD PRN SALINE FLUSH PFSH Medical History Illness anxiety disorder Depression Wears glasses Back pain Difficulty swallowing Gastric reflux History of irregular heartbeat Bloating Asthma Altered bowel function 41 weeks gestation of History of PCOS Family history of other congenital malformations, deformations and chromosomal abnormalities History of asthma GERD (gastroesophageal reflux disease) Supervision of other normal Folliculitis Irregular menses PMDD (premenstrual dysphoric disorder) Anxiety Home Medications ?Medication ?Instructions ?Recorded ?Last Taken ?Type lorazepam 1 mg tablet (Ativan) 1 mg PO BID PRN anxiety #30 tabs 11/13/23 Unknown Rx promethazine 12.5 mg tablet 12.5 mg PO TID PRN nausea and 11/13/23 Unknown Rx vomiting #30 tabs digestive enzymes 1 tab PO QAC 01/15/24 06/24/24 12:00 History cholestyramine (with sugar) 4 gram 4 ea PO DAILY #87 packets 02/02/24 06/24/24 20:00 Rx powder for susp in a packet cholecalciferol (vitamin D3) 125 125 mcg PO QDAY 06/20/24 06/24/24 12:00 History mcg (5,000 unit) capsule escitalopram oxalate 5 mg tablet 5 mg PO QDAY #30 tabs 06/20/24 Unknown Rx ondansetron 4 mg disintegrating 4 mg PO Q8H PRN nausea and 06/20/24 06/25/24 Rx tablet vomiting #30 tabs fluticasone propionate 50 2 spray intranasal Q12H PRN 06/24/24 Unknown History mcg/actuation nasal allergy symptoms spray,suspension oxycodone-acetaminophen 5 mg-325 1 tab PO Q8H PRN pain 3 days #10 06/24/24 Unknown Rx mg tablet (Percocet) tabs naproxen 250 mg tablet 250 - 500 mg (1 - 2 x 250 mg) PO 06/25/24 Unknown Rx Q8H PRN PRN MILD PAIN #30 tabs ondansetron 4 mg disintegrating 4 mg PO Q8H PRN nausea and 06/25/24 Unknown Rx tablet vomiting #20 tabs Allergy/AdvReac Type Severity Reaction Status Date / Time amoxicillin Allergy Mild Hives Verified 06/24/24 19:50 Penicillins (PCN) Allergy Unknown PT UNSURE Verified 06/24/24 19:50 OF REACTION erythromycin base Allergy Hives Verified 06/24/24 19:50 Family History Grandmother Breast cancer melanoma Grandfather Heart disease Father Diabetes Aunt Cancer ovarian Surgical History Status post vaginal delivery History of breast lump/mass excision H/O hernia repair Social History household members: family housing: house number of children: 2 current occupational status: employed Smoking Status: Never smoker second hand exposure: No alcohol intake: never caffeine: Yes what type of physical activity do you participate in: walking frequency: daily seatbelt use: always do you feel safe at home: Yes additional social history: -Jones 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
--- NOTE | 2024-06-25 08:39 | PCM.PN.BLA ---
Progress Note Hg continuing to drop recommend proceeding with surgery- laparoscopic ovarian cystectomy, possible oophorectomy. patient consented and will proceed.
--- NOTE | 2024-06-25 08:40 | OP.PCM_ITS ---
Problems Associated Problem List Diagnoses (1) Syncope: (2) Hemoperitoneum: (3) Ovarian cyst: Multi Select Codes Urinary/Genital Urinary/Genital CPT Codes: 06724 Laproscopic BS/O Operative Report (Standard) Operative Information Date of Procedure: 06/25/24 Pre-Operative Diagnosis: see problem list Post-Operative Diagnosis: same Surgery/Procedure Performed: laparoscopic bilateral ovarian cystotomy assembler tractor: Yes Pick Pulling Machine Operator: Raymon Mittal Tasks completed by social media assistant: Opening & closing, Altering tissue and Insert Trochanter Additional commercial assistant?: No Type of Anesthesia: General RN Documented Start/Stop Times: Operation Date: 06/25/24 09:15 Case Time Anesthesia Start 06/25/24 08:46 Into Room 06/25/24 08:46 Procedure Start 06/25/24 09:06 Procedure End 06/25/24 09:57 Anesthesia End 06/25/24 10:03 Out of Room 06/25/24 10:03 Into Recovery 06/25/24 10:05 Out of Recovery 06/25/24 10:41 Procedure Start Time: 09:06 Procedure Stop Time: 09:57 Select all DRAINS/GRAFTS/IMPLANTS that apply: None Estimated Blood Loss: 900 Fluids Replaced: crystalloid Specimen collected: No Description of surgery: Patient was taken in the operating room and was placed under general anesthesia was prepped and draped in normal sterile fashion in the dorsal lithotomy position. Bladder was drained of clear urine and SCDs were on preoperatively. Uterus was sounded and a uterine manipulator was placed after dilating. Attention was then paid to the abdominal portion of the procedure and the umbilicus was elevated with towel clamps and injected with Marcaine and after a 5 mm incision was made and the Veress needle was entered into the abdomen confirmed to be intra-abdominal with a low opening pressure of less than 5 mmHg. Abdomen was insufflated with CO2 gas and a 5 mm optical trocar was placed under direct visualization. Left and right lower quadrant 5 mm ports were placed under direct visualization. Uterus was well visualized and upon inspection of the pelvis there was an area of activ ebleeding on the right ovarian serosa. this was cauterized and the ovarian cyst opened drained of clear fluid. no cystectomy needed, appeared to be ovulatory cysts. she had bilateral polycystic ovaries in appearance. ovarian drilling was done on the left side and clear serous fluid drained, no significant bleeding. floseal and hemblast used at the base of the right ovarian bed to obtain hemostasis. as much blood as could be suctioned and removed was removed from the pelvis. Excellent hemostasis was noted in the pelvis. Liver and upper abdomen were visualized notably within normal limits and no other gross abnormalities were seen in the abdomen. All instruments removed from the abdomen after gas was desufflated. Port sites were closed with 3-0 Monocryl Steri's and op sites were applied. All instruments removed from the vagina and patient was awoken and taken recovery in stable condition. Surgical Findings: right ovary active bleeding from serosa bilateral simple ovarian cysts no torsion, 900 cc blood in abdomen Complications Complications: No
--- NOTE | 2024-06-25 08:45 | DCINST_ITS ---
Discharge Instructions Diet Discharge Diet: No restrictions DC O2, CPAP, BIPAP needs Home O2 Discharge instructions: No Dressing / Incision Discharge Activity: Return to Normal Activity, May Not Drive ( while taking narcotic pain meds, when pain free), May Shower and May Take a Tub Bath (in 7 days) May resume sexual activity in: 1 week Weight Bearing Status: Full weight bearing Dressing / Incision Call your doctor if your incision/area has: Continuous Slow Oozing, Sudden Increased Bleeding, Increased Pain/ Swelling, Increased Redness and Foul Smelling Discharge Call your doctor if you observe: Fever of 101 or Higher, Using more than 1 pad per hour, Shortness of breath, Chest pain and Uncontrolled pain Suture Line Care: Avoid Pulling/Pushing and Avoid Pinching/Bending Remove Dressing in: 1 week (if present) Cleanse incision/area with: Soap & Water and Keep Dressing Clean & Dry Follow Up Care When: Call to make an appointment with your doctor for a fu/incision check in 1- 2 weeks. Test Results: Test results from this visit will be discussed in further detail at your follow- up appointment, if applicable. Discharge Plan Admission Admit Date/Time: 06/25/24 00:40 Attending Provider: Rubia Mariee Primary Care Provider: Ad Call Instructions Patient Instructions: ED Ovarian Cyst Discharge Orders/Prescriptions Prescriptions: New oxycodone-acetaminophen [Percocet] 5-325 mg tablet 1 tab PO Q8H PRN (Reason: pain) 3 Days Qty: 10 0RF naproxen 250 mg tablet 250 - 500 mg PO Q8H PRN PRN (Reason: MILD PAIN) Qty: 30 1RF ondansetron 4 mg tablet,disintegrating 4 mg PO Q8H PRN (Reason: nausea and vomiting) Qty: 20 0RF No Action digestive enzymes Tablet 1 tab PO QAC cholecalciferol (vitamin D3) 125 mcg (5,000 unit) capsule 125 mcg PO QDAY escitalopram oxalate 5 mg tablet 5 mg PO QDAY Qty: 30 2RF Patient Comments: did not start yet, new medication ondansetron 4 mg tablet,disintegrating 4 mg PO Q8H PRN (Reason: nausea and vomiting) Qty: 30 0RF fluticasone propionate 50 mcg/actuation spray,suspension 2 spray INTRANASAL Q12H PRN (Reason: allergy symptoms) Patient Comments: [NO ORIGINAL SIG] promethazine 12.5 mg tablet 12.5 mg PO TID PRN (Reason: nausea and vomiting) Qty: 30 0RF Rx Instructions: 3 doses during day; last dose no later than 4 hr before bedtime lorazepam [Ativan] 1 mg tablet 1 mg PO BID PRN (Reason: anxiety) Qty: 30 0RF cholestyramine (with sugar) 4 gram powder in packet 4 ea PO DAILY Qty: 87 5RF Referrals / Follow Up: Ad Call DO [Primary Care Provider] - Rubia Mariee MD [Med Staff - Active Staff] - Disposition Disposition (needs filled in before D/C Order can be placed): Home, Self Care
[2024-06-25] MEDS: Bupiv/Epi 0.25% 30 ML Vial (09:52)
--- NOTE | 2024-06-25 10:05 | PCM.POST.ANE ---
Anesthesia: Postop Eval I Current Vital Signs Temperature: 97.8 F Pulse Rate: 107 Blood Pressure: 104/72 Respiratory Rate: 16 Pulse Ox: 100 Oxygen Delivery Method: Room Air Assessment Airway patent: Yes Spontaneous unlabored respirations: Yes Mental status: Awake and Calm nausea: No Vomiting: No Anesthesia Complication: No Fluid Hydration Crystalloid volume administer (ml): 400 Total IV fluid infused: 400 Progress Note Anesthesia document: Postop Eval 1 completed: Yes
--- NOTE | 2024-06-25 10:11 | PCM.POSTANE2 ---
Anesthesia Postop Eval I Sum Postop Eval Completion status Anesthesia document: Postop Eval 1 completed: Yes Anesthesia Postop Eval I Summary Anesthesia Postop Eval I Summary: Anesthesia Postop Eval I: Assessment Summary Airway patent Yes 06/25/24 10:11 Spontaneous unlabored Yes 06/25/24 10:11 respirations Mental status Awake,Calm 06/25/24 10:11 nausea No 06/25/24 10:11 Vomiting No 06/25/24 10:11 Anesthesia Postop Eval I: Fluid Summary Crystalloid volume administer 400 06/25/24 10:11 (ml) Colloids volume administered ( ml) Blood Product volume administered (ml) Total IV fluid infused 400 06/25/24 10:11 Anesthesia Postop Eval I: Summary Notes Anesthesia Complication No 06/25/24 10:11 Anesthesia Complication Comment: Post-operative progress note Anesthesia: Postop Eval II Evaluation Mental status: Awake Pain Level: 0 nausea: No Vomiting: No
[2024-06-25 10:22] LABS: Absolute Lymphocyte Count 1.16 X10^3/uL (0.83-4.51); Absolute Neutrophil Count 5.8 X10^3/uL (2.0-7.7); Basophil# 0.04 X10^3/uL; Basophil% 0.5 % (0-1); Eosinophil# 0.02 X10^3/uL; Eosinophils% 0.3 % (0-5); Hematocrit 34.5 % (37-47); Hemoglobin 11.3 g/dL (12.0-15.0); Lymphocyte # 1.16 X10^3/ul (0.83-4.51); Lymphocyte % 15.3 % (19-41); Mean Corp Hgb Conc 32.8 g/dL (32-36); Mean Corpuscular Volume 94.5 fL (81-99); Mean Platelet Vol. 10.7 fl (6.2-12.0); Monocyte# 0.48 X10^3/uL; Monocyte% 6.3 % (0-10); NRBC Flagged by Analyzer 0 % (0-5); Neutrophil # 5.84 X10^3/uL (2.7-7.7); Neutrophil % 77.2 % (47-70); Platelet Count 232 K/mm3 (150-450); RBC Distribution Width CV 12.2 % (11.6-14.6); RBC Distribution Width SD 42.6 fl (35.1-43.9); Red Blood Count 3.65 M/mm3 (4.2-5.4); White Blood Count 7.6 K/mm3 (4.4-11.0)
[2024-06-25] MEDS: HYDROcodone Bitartrate/Apap 5/325 Tablet PO (12:42)
== END 2024-06-25 13:53 | disposition home or self-care (01) ==
LOC: ED 06-25 00:35 → MS3 06-25 00:41
PROVIDERS: Admitting Provider Obstetrics & Gynecology; Emergency Provider Emergency Medicine; PCP Student in an Organized Health Care Education/Training Program; Visit Provider Obstetrics & Gynecology
PROC: (CPT 49322; principal; 2024-06-25 09:00)
DX: R55 Syncope and collapse (principal); E28.2 Polycystic ovarian syndrome; I95.9 Hypotension, unspecified; K66.1 Hemoperitoneum; M25.511 Pain in right shoulder; K21.9 Gastro-esophageal reflux disease without esophagitis; J45.909 Unspecified asthma, uncomplicated; Z79.899 Other long term (current) drug therapy; N83.201 Unspecified ovarian cyst, right side; F32.A Depression, unspecified; F41.9 Anxiety disorder, unspecified
CPT/HCPCS: 49322; 00840; 36415; 74177; 76830; 80053; 81001; 84703; 85025; 85610; 85730; 96361; 96374; 96375; 96376; 99221; 99284; Q9967; A4216; G0378; J2405

== ENCOUNTER → 2024-07-05 | Outpatient (CLI) | payer OTHER, SELFPAY ==
[2024-07-05 17:28] LABS: Absolute Lymphocyte Count 1.47 X10^3/uL (0.83-4.51); Absolute Neutrophil Count 4.2 X10^3/uL (2.0-7.7); Basophil# 0.06 X10^3/uL; Basophil% 0.9 % (0-1); Eosinophil# 0.54 X10^3/uL; Hematocrit 36.5 % (37-47); Hemoglobin 11.8 g/dL (12.0-15.0); Lymphocyte # 1.47 X10^3/ul (0.83-4.51); Lymphocyte % 21.9 % (19-41); Mean Corp Hgb Conc 32.3 g/dL (32-36); Mean Corpuscular Hgb 30.2 pg (27.0-32.0); Mean Corpuscular Volume 93.4 fL (81-99); Monocyte# 0.42 X10^3/uL; Monocyte% 6.3 % (0-10); NRBC Flagged by Analyzer 0 % (0-5); Neutrophil # 4.18 X10^3/uL (2.7-7.7); Neutrophil % 62.3 % (47-70); Platelet Count 530 K/mm3 (150-450); Red Blood Count 3.91 M/mm3 (4.2-5.4); White Blood Count 6.7 K/mm3 (4.4-11.0)
== END | disposition home or self-care (01) ==
LOC: LAB 16:23
PROVIDERS: PCP Student in an Organized Health Care Education/Training Program; Referring Provider Obstetrics & Gynecology; Visit Provider Obstetrics & Gynecology
DX: R42 Dizziness and giddiness (principal); R53.83 Other fatigue; R06.02 Shortness of breath; R51.9 Headache, unspecified
CPT/HCPCS: 36415; 85025

== ENCOUNTER → 2024-07-07 | Outpatient (CLI) | payer OTHER, SELFPAY ==
--- NOTE | 2024-07-07 17:49 | US_ITS ---
PROCEDURE: Transvaginal and transabdominal pelvic ultrasound REASON FOR EXAM: Lower abdominal pain COMPARISON: None. FINDINGS Uterus measures 9.6 x 5.4 x 4.7 cm and is retroverted. Normal endometrial stripe thickness measuring 6 mm. Nabothian cysts noted. Right ovary measures 5.0 x 2.6 x 3.0 cm. Left ovary measures 6.0 x 4.1 x 2.6 cm. Appropriate bilateral ovarian blood flow. Follicular changes of both ovaries, largest on the left measuring up to 1.9 cm. Moderate fluid in the pelvis. US/Pelvic w/ Transvaginal IMPRESSION: 1. Negative for ovarian torsion. 2. Follicular changes of both ovaries, greater on the left. 3. Moderate pelvic free fluid. Reading Location: [facility]
== END | disposition home or self-care (01) ==
PROVIDERS: PCP Student in an Organized Health Care Education/Training Program; Referring Provider Obstetrics & Gynecology; Visit Provider Obstetrics & Gynecology
DX: R10.30 Lower abdominal pain, unspecified (principal)
CPT/HCPCS: 76830; 76856

== ENCOUNTER → 2024-07-13 | Outpatient (CLI) | payer OTHER, SELFPAY ==
[2024-07-20 15:08] LABS: 17-Hydroxyprogesterone 93 ng/dL (.)
[2024-07-22 18:08] LABS: Testosterone Free 0.5 pg/mL (0.0-4.2)
== END | disposition home or self-care (01) ==
LOC: BWCLAB 14:06
PROVIDERS: PCP Student in an Organized Health Care Education/Training Program; Referring Provider Obstetrics & Gynecology; Visit Provider Obstetrics & Gynecology
DX: R10.2 Pelvic and perineal pain (principal)
CPT/HCPCS: 36415; 82627; 83498; 84402; 82626

== ENCOUNTER → 2024-12-30 | Outpatient (CLI) | payer OTHER, SELFPAY ==
--- NOTE | 2024-12-30 07:50 | US_ITS ---
PROCEDURE: GALLBLADDER, 12/30/2024 REASON FOR EXAM: ABD PAIN AND DIARRHEA COMPARISON: 06/24/2024 FINDINGS: Liver: Unremarkable. 16.0 cm in length. Gallbladder: No visualized stones, wall thickening or pericholecystic fluid. Reportedly, sonographic Mosley's was negative. Biliary tree: Unremarkable. CBD measures 3 mm. Pancreas: Partially obscured by shadowing bowel gas, grossly unremarkable as visualized. Right kidney: Unremarkable. 10.7 cm in length. Other: No visualized free fluid. US/Gallbladder IMPRESSION: 1. No acute findings. If unexplained symptoms persist, consider CT. 2. Additional description as above. Reading Location: [id number]
== END | disposition home or self-care (01) ==
PROVIDERS: PCP Student in an Organized Health Care Education/Training Program; Referring Provider Internal Medicine Gastroenterology; Visit Provider Internal Medicine Gastroenterology
DX: R10.9 Unspecified abdominal pain (principal); R19.7 Diarrhea, unspecified
CPT/HCPCS: 76705

== ENCOUNTER → 2025-01-03 | Outpatient (CLI) | payer OTHER, SELFPAY ==
--- NOTE | 2025-01-03 10:48 | NM_ITS ---
PROCEDURE: HEPATOBILLIARY IMG W/PHARM INT, along with gallbladder ejection fraction 01/03/2025 REASON FOR EXAM: ABD PAIN AND DIARRHEA TECHNIQUE: Intravenous Choletec with planar imaging of the abdomen. Gallbladder ejection fraction was also obtained. RADIOPHARMACEUTICAL: 5.7 mCi technetium 99 M mebrofenin IV. 1.3 mcg sincalide IV, injected over 15 minutes, for gallbladder ejection fraction. COMPARISON: CT examination of 06/24/2019. FINDINGS: Satisfactory hepatic uptake and excretion is seen.. Normal gallbladder visualization with the gallbladder identified by 15 minutes. Small bowel activity is seen by the 45 minute film. Following cholecystokinin administration, an abnormally low gallbladder ejection fraction of 5% was seen in the 30 minute timeframe. NM/Hepatobilliary Img w/Pharm Int IMPRESSION: 1. Low gallbladder ejection fraction of 5%. In the correct clinical circum sca ns, this may be consistent with chronic cholecystitis. 2. Negative hepatobiliary scan, otherwise. Reading Location: [place] [id number]
== END | disposition home or self-care (01) ==
PROVIDERS: PCP Student in an Organized Health Care Education/Training Program; Referring Provider Internal Medicine Gastroenterology; Visit Provider Internal Medicine Gastroenterology
DX: R19.7 Diarrhea, unspecified (principal); R10.9 Unspecified abdominal pain
CPT/HCPCS: 78227; A9537; J2805